=== PATIENT | female | born 1955 | race Caucasian/White ===

== ENCOUNTER 2018-10-16 20:24 | Emergency (ER) | payer MEDICARE, MEDICAID ==
--- NOTE | 2018-10-16 20:55 | EDM.PDOC ---
ED HPI GENERAL MEDICAL PROBLEM - General Chief Complaint: Abdominal Pain Stated Complaint: MEDICAL [facility]IA [facility] Time Seen by Provider: 10/16/18 20:35 Source of Information: Reports: Patient, Provider History Limitations: Reports: No Limitations - History of Present Illness INITIAL COMMENTS - FREE TEXT/NARRATIVE: 62-year-old female in a local treatment center for chemical dependency treatment , has been in for one month but today developed some left lower abdominal and left flank pain for the past 10 hours, particularly bad the last 5-6 hours. She has a history of radiation of the pelvis for cancer and a bladder rupture history and is concerned something is wrong with her urinary tract system. She was recently treated for bladder infection but that seems to have improved and resolved. She has no fevers or chills, no abdominal distention. Denies nausea or vomiting or bowel changes. She is very anxious. Onset: Sudden Duration: Hour(s): (7 hours) Location: Reports: Other (Left lower abdomen and left flank) Associated Symptoms: Reports: No Other Symptoms Left Lower Abdomen Pain Score (Numeric/FACES): 5 - Related Data Allergies Allergy/AdvReac Type Severity Reaction Status Date / Time ibuprofen Allergy Difficulty Verified 10/16/18 20:31 Breathing Sulfa (Sulfonamide Allergy Hives Verified 10/16/18 20:31 Antibiotics) Home Meds: Home Meds Acetaminophen [Tylenol] 325 mg PO Q4H PRN 10/16/18 [History] Albuterol/Ipratropium [Combivent Respimat] 4 gm IH DAILY 10/16/18 [History] Carvedilol 6.25 mg PO DAILY 10/16/18 [History] Clopidogrel Bisulfate [Clopidogrel] 75 mg PO DAILY 10/16/18 [History] DULoxetine [Cymbalta] 60 mg PO DAILY 10/16/18 [History] Losartan [Cozaar] 50 mg PO DAILY 10/16/18 [History] amLODIPine [Norvasc] 10 mg PO DAILY 10/16/18 [History] atorvaSTATin [Lipitor] 40 mg PO DAILY 10/16/18 [History] Past Medical History HEENT History: Reports: Impaired Vision Cardiovascular History: Reports: High Cholesterol, Hypertension, [place] Respiratory History: Reports: COPD, Pneumonia, Recurrent Genitourinary History: Reports: Urinary Incontinence 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 Neurological History: Reports: Brain Injury Other Neuro History: brain bleed Psychiatric History: Reports: Addiction, Anxiety Oncologic (Cancer) History: Reports: Cervix - Past Surgical History Cardiovascular Surgical History: Reports: Coronary Artery Stent GI Surgical History: Reports: Colostomy Social & Family History - Tobacco Use Smoking Status *Q: Current Every Day Smoker Years of Tobacco use: 45 Packs/Tins Daily: 1 - Caffeine Use Caffeine Use: Reports: Coffee, Soda Caffeine Use Comment: rarely - Alcohol Use Days Per Week of Alcohol Use: 7 Number of Drinks Per Day: 3 Total Drinks Per Week: 21 Date of Last Drink: 09/08/18 - Recreational Drug Use Recreational Drug Use: Yes Recreational Drug Type: Reports: Methamphetamine Recreational Drug Use Frequency: Not Used In Over 1 Month ED ROS GENERAL - Review of Systems Review Of Systems: See Below Constitutional: Denies: Fever, Chills HEENT: Reports: No Symptoms Respiratory: Denies: Shortness of Breath, Pleuritic Chest Pain Cardiovascular: Denies: Chest Pain GI/Abdominal: Reports: Abdominal Pain. Denies: Diarrhea, Nausea, Vomiting : Reports: Flank Pain. Denies: Frequency, Hematuria, Urgency Skin: Reports: No Symptoms Neurological: Reports: No Symptoms Psychiatric: Reports: Anxiety ED EXAM, GI/ABD - Physical Exam Exam: See Below Exam Limited By: No Limitations General Appearance: Alert, No Apparent Distress, Other (Looks uncomfortable but not distressed) Eyes: Bilateral: Normal Appearance (No jaundice) Respiratory/Chest: No Respiratory Distress, Lungs Clear Cardiovascular: Regular Rate, Rhythm GI/Abdominal Exam: Other (Abdomen is very flat, normal bowel sounds. She has tenderness to palpation with mild guarding in the left lower quadrant but no rebound tenderness. She is also tender to the left flank area, there is no superficial rash or bruising) Course - Vital Signs Last Recorded V/S: Last Vital Signs Temp 99.4 F 10/16/18 20:26 Pulse 94 10/16/18 20:26 Resp 16 10/16/18 20:26 BP 136/51 L 10/16/18 20:26 Pulse Ox 99 10/16/18 20:26 - Orders/Labs/Meds Meds: Medications Discontinued Medications Generic Name Dose Route Start Last Admin Trade Name Freq PRN Reason Stop Dose Admin Ketorolac Tromethamine 10 mg 10/16/18 21:38 10/16/18 21:44 Toradol PO 10/16/18 21:39 10 mg ONETIME ONE Administration - Re-Assessments/Exams Free Text/Narrative Re-Assessment/Exam: 10/16/18 20:54 CT the abdomen and pelvis to rule out a renal stone, bladder injury or other pathology was ordered. 10/16/18 21:38 CT scan shows chronic changes from radiation of the pelvis, and left hydronephrosis considered compensatory to her atrophic right kidney. It is possible she is experiencing some renal colic from the right side. She said she says numerous CT scans in the recent years from spasm-like pain in her abdomen, nothing has been found so this may be similar. She'll be given one 10 mg dose of Toradol orally, and can recheck in the next 24-48 hours if not improving. Departure - Departure Time of Disposition: 22:13 Disposition: DC/Tfer to Other 70 Clinical Impression: Left flank pain, Renal colic on left side - Discharge Information Instructions: Flank Pain, Adult Referrals: PCP,None [Primary Care Provider] - Forms: ED Department Discharge Care Plan Goals: Continue current medications, and consider rechecking in 24-48 hours if left flank pain is persistent, you develop fevers or chills or worsening pain.
--- NOTE | 2018-10-16 21:29 | CRLCT ---
INDICATION: Left flank pain. History of cervical cancer and bladder repair. TECHNIQUE: CT abdomen and pelvis without contrast. COMPARISON: None. FINDINGS: Lower chest: Coronary atherosclerosis. Liver: Normal in size and attenuation. No masses. Gallbladder and bile ducts: No stones or inflammation. No biliary dilatation. Pancreas: Unremarkable. No mass or inflammation. Spleen: Normal in size. No masses. Adrenal glands: Normal in size. No nodules. Kidneys: Atrophic right kidney without evidence of hydronephrosis. Mild compensatory hypertrophy left kidney with mild left hydronephrosis. Some tortuosity of the proximal left ureter with some decreased caliber of the mid ureter. Distal ureter appears decompressed. No definite nephrolithiasis seen. GI tract: The stomach is unremarkable. There are no dilated loops of large or small intestine. Vasculature: Atherosclerosis without abdominal aortic aneurysm. Pelvis: The bladder is decompressed and the patient is status posthysterectomy. There is some diffuse fascial thickening along the pelvic sidewalls as well as at the level of the sciatic notch and the presacral space. Some chunky and linear calcifications present along the pelvic sidewalls as well as along the base of the bladder. This appears to be mostly external although some component could be within the urethra. There are diffuse irregular areas of soft tissue density along the pelvic sidewalls although no obvious pelvic sidewall masses are identified for the noncontrast technique. Bones: Mild inhomogeneity and sclerosis within the pelvis suggesting prior radiation therapy. Avascular necrosis left femoral head. Old inferior endplate fracture L5. IMPRESSION: 1. Atrophic right kidney with compensatory hypertrophy of the left kidney. Mild left hydronephrosis without nephrolithiasis. This transitions over the mid to distal left ureter, likely related to fibrosis along the pelvic sidewall. 2. Decompressed bladder with diffuse fascial thickening within the pelvis, sclerosis within the osseous structures as well as areas of calcification near the base of the bladder and along the pelvic sidewalls. This likely represents postsurgical and/or postradiation changes with dystrophic calcification. 3. Avascular necrosis left femoral head. Old-appearing L5 inferior endplate fracture. Please note that all CT scans at this facility use dose modulation, iterative reconstruction, and/or weight-based dosing when appropriate to reduce radiation dose to as low as reasonably achievable. Dictated by Edson Han MD @ Oct 16 2018 9:08PM Signed by Dr. Edson Han @ Oct 16 2018 9:27PM
[2018-10-16] MEDS ORDERED: Ketorolac 10 MG Tab PO ONE (21:38)
== END 2018-10-16 22:39 | disposition other institution (70) ==
LOC: JP.ED 20:24
DX: N13.30 Unspecified hydronephrosis (principal); E78.00 Pure hypercholesterolemia, unspecified; I10 Essential (primary) hypertension; I25.2 Old myocardial infarction; J44.9 Chronic obstructive pulmonary disease, unspecified; F17.210 Nicotine dependence, cigarettes, uncomplicated; Z88.8 Allergy status to other drugs, medicaments and biological substances; Z88.2 Allergy status to sulfonamides; Z79.899 Other long term (current) drug therapy; Z88.6 Allergy status to analgesic agent
CPT/HCPCS: 74176; 99284; A9270; 99283

== ENCOUNTER 2018-10-17 12:52 | Emergency (ER) | payer MEDICARE, MEDICAID ==
[2018-10-17] MEDS ORDERED: LORazepam 1 MG Tab PO ONE (14:13)
--- NOTE | 2018-10-17 14:16 | EDM.PDOC ---
ED HPI GENERAL MEDICAL PROBLEM - General Chief Complaint: Flank Pain Stated Complaint: MEDICAL [facility]IA [facility] Time Seen by Provider: 10/17/18 14:08 Source of Information: Reports: Patient, Old Records, RN Notes Reviewed History Limitations: Reports: No Limitations - History of Present Illness INITIAL COMMENTS - FREE TEXT/NARRATIVE: 62-year-old female presents to emergency department today complaint of right flank pain, she was evaluated in the emergency department yesterday for same complaints CT scan at that time showed no acute process she does have atrophy of the right kidney and hydronephrosis on the left side thought to be compensatory. She states Toradol may have helped a little feels like the pain is predominantly in the low back denies any fevers shortness of breath or chest Left Flank Pain Score (Numeric/FACES): 6 - Related Data Allergies Allergy/AdvReac Type Severity Reaction Status Date / Time ibuprofen Allergy Difficulty Verified 10/17/18 12:58 Breathing Sulfa (Sulfonamide Allergy Hives Verified 10/17/18 12:58 Antibiotics) Home Meds: Home Meds Acetaminophen [Tylenol] 325 mg PO Q4H PRN 10/16/18 [History] Albuterol/Ipratropium [Combivent Respimat] 4 gm IH DAILY 10/16/18 [History] Carvedilol 6.25 mg PO DAILY 10/16/18 [History] Clopidogrel Bisulfate [Clopidogrel] 75 mg PO DAILY 10/16/18 [History] DULoxetine [Cymbalta] 60 mg PO DAILY 10/16/18 [History] Losartan [Cozaar] 50 mg PO DAILY 10/16/18 [History] amLODIPine [Norvasc] 10 mg PO DAILY 10/16/18 [History] atorvaSTATin [Lipitor] 40 mg PO DAILY 10/16/18 [History] Hydrocodone/Acetaminophen [Hydrocodon-Acetaminophen 5-325] 1 each PO TID PRN #6 tablet 10/17/18 [Rx] Nitrofurantoin Monohyd/M-Cryst [Macrobid 100 mg Capsule] 100 mg PO BID #14 capsule 10/17/18 [Rx] Past Medical History HEENT History: Reports: Impaired Vision Cardiovascular History: Reports: CAD, High Cholesterol, Hypertension, [place] Respiratory History: Reports: COPD, Pneumonia, Recurrent Genitourinary History: Reports: Urinary Incontinence 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 Neurological History: Reports: Brain Injury Other Neuro History: brain bleed Psychiatric History: Reports: Addiction, Anxiety Oncologic (Cancer) History: Reports: Cervix - Past Surgical History Cardiovascular Surgical History: Reports: Coronary Artery Stent GI Surgical History: Reports: Colostomy Social & Family History - Tobacco Use Smoking Status *Q: Current Every Day Smoker Years of Tobacco use: 50 Packs/Tins Daily: 1 - Caffeine Use Caffeine Use: Reports: Coffee Caffeine Use Comment: rarely - Recreational Drug Use Recreational Drug Use: Yes Recreational Drug Type: Reports: Methamphetamine ED ROS GENERAL - Review of Systems Review Of Systems: See Below Constitutional: Reports: No Symptoms HEENT: Reports: No Symptoms Respiratory: Reports: No Symptoms Cardiovascular: Reports: No Symptoms GI/Abdominal: Reports: Abdominal Pain. Denies: Nausea, Vomiting : Reports: Flank Pain ED EXAM, GI/ABD - Physical Exam Exam: See Below Exam Limited By: No Limitations General Appearance: Alert, Mild Distress Respiratory/Chest: No Respiratory Distress, Lungs Clear, Normal Breath Sounds, No Accessory Muscle Use, Chest Non-Tender Cardiovascular: Regular Rate, Rhythm, No Murmur GI/Abdominal Exam: Soft, Non-Tender Back Exam: Normal Inspection, Full Range of Motion, Muscle Spasm, Paraspinal Tenderness. No: CVA Tenderness (R), CVA Tenderness (L), Decreased Range of Motion, Vertebral Tenderness Course - Vital Signs Last Recorded V/S: Last Vital Signs Temp 97.9 F 10/17/18 13:05 Pulse 73 10/17/18 13:05 Resp 16 10/17/18 13:05 BP 125/36 L 10/17/18 13:05 Pulse Ox 99 10/17/18 13:05 - Orders/Labs/Meds Orders: Active Orders 24 hr Category Date Time Status CULTURE URINE [RM] Urgent Lab 10/17/18 15:06 Received Labs: Laboratory Tests 10/17/18 10/17/18 10/17/18 Range/Units 14:05 14:13 14:13 WBC 17.6 H (4.5-11.0) K/uL RBC 3.61 (3.30-5.50) M/uL Hgb 11.4 L (12.0-15.0) g/dL Hct 35.0 L (36.0-48.0) % MCV 97 (80-98) fL MCH 32 H (27-31) pg MCHC 33 (32-36) % Plt Count 327 (150-400) K/uL Neut % (Auto) 85 H (36-66) % Lymph % (Auto) 8 L (24-44) % [place] % (Auto) 8 H (2-6) % Eos % (Auto) 0 L (2-4) % Baso % (Auto) 0 (0-1) % Sodium 134 L (140-148) mmol/L Potassium 4.3 (3.6-5.2) mmol/L Chloride 100 (100-108) mmol/L Carbon Dioxide 22 (21-32) mmol/L Anion Gap 16.3 H (5.0-14.0) mmol/L BUN 50 H (7-18) mg/dL Creatinine 1.6 H (0.6-1.0) mg/dL Est Cr Clr Drug Dosing 25.58 mL/min Estimated GFR (MDRD) 33 L (>60) Glucose 111 H (74-106) mg/dL Lactic Acid (0.4-2.0) mmol/L Calcium 8.5 (8.5-10.1) mg/dL Total Bilirubin 0.2 (0.2-1.0) mg/dL AST 26 (15-37) U/L ALT 24 (12-78) U/L Alkaline Phosphatase 151 H (46-116) U/L Troponin I (0.000-0.056) ng/mL Total Protein 7.0 (6.4-8.2) g/dL Albumin 2.8 L (3.4-5.0) g/dL Globulin 4.2 H (2.3-3.5) g/dL Albumin/Globulin Ratio 0.7 L (1.2-2.2) Urine Color Yellow Urine Appearance Slightly cloudy Urine pH 6.0 (4.5-8.0) Ur Specific [place] 1.015 (1.008-1.030) Urine Protein 100 H (NEGATIVE) mg/dL Urine Glucose (UA) Normal (NEGATIVE) mg/dL Urine Ketones Negative (NEGATIVE) mg/dL Urine Occult Blood Large (NEGATIVE) Urine Nitrite Negative (NEGATIVE) Urine Bilirubin Negative (NEGATIVE) Urine Urobilinogen Normal (NORMAL) mg/dL Ur Leukocyte Esterase Large (NEGATIVE) Urine RBC 10-20 H (0-5) Urine WBC Semi-packed H (0-5) Ur Epithelial Cells Moderate Amorphous Sediment Not seen Urine Bacteria Many Urine Mucus Not seen Urine Other 10/17/18 10/17/18 Range/Units 14:13 14:15 WBC (4.5-11.0) K/uL RBC (3.30-5.50) M/uL Hgb (12.0-15.0) g/dL Hct (36.0-48.0) % MCV (80-98) fL MCH (27-31) pg MCHC (32-36) % Plt Count (150-400) K/uL Neut % (Auto) (36-66) % Lymph % (Auto) (24-44) % [place] % (Auto) (2-6) % Eos % (Auto) (2-4) % Baso % (Auto) (0-1) % Sodium (140-148) mmol/L Potassium (3.6-5.2) mmol/L Chloride (100-108) mmol/L Carbon Dioxide (21-32) mmol/L Anion Gap (5.0-14.0) mmol/L BUN (7-18) mg/dL Creatinine (0.6-1.0) mg/dL Est Cr Clr Drug Dosing mL/min Estimated GFR (MDRD) (>60) Glucose (74-106) mg/dL Lactic Acid 1.4 (0.4-2.0) mmol/L Calcium (8.5-10.1) mg/dL Total Bilirubin (0.2-1.0) mg/dL AST (15-37) U/L ALT (12-78) U/L Alkaline Phosphatase (46-116) U/L Troponin I < 0.017 (0.000-0.056) ng/mL Total Protein (6.4-8.2) g/dL Albumin (3.4-5.0) g/dL Globulin (2.3-3.5) g/dL Albumin/Globulin Ratio (1.2-2.2) Urine Color Urine Appearance Urine pH (4.5-8.0) Ur Specific [place] (1.008-1.030) Urine Protein (NEGATIVE) mg/dL Urine Glucose (UA) (NEGATIVE) mg/dL Urine Ketones (NEGATIVE) mg/dL Urine Occult Blood (NEGATIVE) Urine Nitrite (NEGATIVE) Urine Bilirubin (NEGATIVE) Urine Urobilinogen (NORMAL) mg/dL Ur Leukocyte Esterase (NEGATIVE) Urine RBC (0-5) Urine WBC (0-5) Ur Epithelial Cells Amorphous Sediment Urine Bacteria Urine Mucus Urine Other Meds: Medications Discontinued Medications Generic Name Dose Route Start Last Admin Trade Name Freq PRN Reason Stop Dose Admin Ceftriaxone Sodium 1 gm/ 0 gm 10/17/18 15:06 10/17/18 15:23 Lidocaine HCl 2.1 ml IM 10/17/18 15:07 1 inj ONETIME ONE Administration Hydromorphone HCl 1 mg 10/17/18 15:01 10/17/18 15:16 Dilaudid IM 10/17/18 15:02 1 mg ONETIME ONE Administration Lorazepam 1 mg 10/17/18 14:13 10/17/18 14:46 Ativan PO 10/17/18 14:14 1 mg ONETIME ONE Administration Departure - Departure Time of Disposition: 15:40 Disposition: DC/Tfer to Inpt Rehab Fac 62 Condition: Fair Clinical Impression: UTI, Urinary tract infectious disease - Discharge Information Prescriptions: Hydrocodone/Acetaminophen [Hydrocodon-Acetaminophen 5-325] 1 each PO TID PRN #6 tablet PRN Reason: Pain Nitrofurantoin Monohyd/M-Cryst [Macrobid 100 mg Capsule] 100 mg PO BID #14 capsule Instructions: Urinary Tract Infection, Adult Referrals: PCP,None [Primary Care Provider] - Forms: ED Department Discharge Additional Instructions: Take full course of antibiotics, use ibuprofen for baseline pain control use hydrocodone for breakthrough pain, Please followup with your primary care provider in 3-5 days if not better, please call return to the emergency department with worsening of symptoms. - My Orders Last 24 Hours: My Active Orders 10/17/18 15:06 CULTURE URINE [RM] Urgent - Assessment/Plan Last 24 Hours: My Active Orders 10/17/18 15:06 CULTURE URINE [RM] Urgent Plan: Assessment Acuity = acute Site and laterality = urinary tract infection Etiology = probable bacterial cause Manifestations = renal colic and bladder spasms Location of injury = Home Lab values = urinalysis reveals packed WBCs consistent pyuria, 10-20 RBCs consistent with hematuria, WBC elevated at 17.6 consistent leukocytosis, hemoglobin low 11.4 consistent normochromic anemia creatinine elevated 1.6 consistent chronic renal failure stage G IIIB troponin was negative albumin low at 2.8 consistent hypoalbuminemia Plan She had good relief of her spasms with hydromorphone, provided 1 g Rocephin in the ED prescription written for Macrobid 100 mg by mouth twice a day 7 days given her sulfa allergy also hydrocodone 5/325 one tab by mouth 3 times a day when necessary total #6 be transported back to the chemical dependency facility This note was dictated using [employer] voice recognition software please call with any questions on syntax or grammar. He
[2018-10-17] MEDS ORDERED: HYDROmorphone 1 MG/ML Syringe IM ONE (15:01)
[2018-10-17] MEDS ORDERED: cefTRIAXone 1 GM, Lidocaine 1% 2.1 ML IM ONE ×2 (15:06)
[2018-10-17] MEDS ORDERED: diphenhydrAMINE 50 MG/ML SDV IM ONE (15:49)
== END 2018-10-17 16:43 ==
LOC: JP.ED 12:52
DX: N39.0 Urinary tract infection, site not specified (principal); N23 Unspecified renal colic; N32.89 Other specified disorders of bladder; I25.10 Atherosclerotic heart disease of native coronary artery without angina pectoris; E78.00 Pure hypercholesterolemia, unspecified; I10 Essential (primary) hypertension; I25.2 Old myocardial infarction; J44.9 Chronic obstructive pulmonary disease, unspecified; F41.9 Anxiety disorder, unspecified; F17.210 Nicotine dependence, cigarettes, uncomplicated; Z88.2 Allergy status to sulfonamides; Z88.6 Allergy status to analgesic agent; Z79.899 Other long term (current) drug therapy
CPT/HCPCS: 36415; 80053; 81001; 83605; 84484; 85025; 87086; 96372; 99285; A9270; J0696; J1170; J1200; J2001; 99283

== ENCOUNTER 2018-10-17 21:44 | Inpatient (IN) | payer MEDICARE, MEDICAID ==
[2018-10-17] MEDS ORDERED: cefTRIAXone 2 GM in Sodium Chloride 0.9% 50 ML IV ONE (22:15)
[2018-10-17] MEDS ORDERED: Sodium Chloride 0.9% 1,000 ML IV SCH (22:15)
--- NOTE | 2018-10-17 22:38 | EDM.PDOC ---
ED HPI GENERAL MEDICAL PROBLEM - General Chief Complaint: Fever Stated Complaint: [facility] Time Seen by Provider: 10/17/18 22:00 Source of Information: Reports: Patient, EMS, Provider History Limitations: Reports: No Limitations - History of Present Illness INITIAL COMMENTS - FREE TEXT/NARRATIVE: 62-year-old female with chronic UTIs, was just recently treated for UTI and evaluated in the emergency room last p.m. for left-sided abdominal discomfort had a negative CT scan and normal vitals. She was reevaluated today and found to have bacteriuria, a culture started and labs drawn. She was sent back to her course of detox at [facility] with an oral antibiotic but is worsening. She is becoming confused, febrile and there is concern for sepsis. 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: Reports: IV/IO, See EMS Report Bilateral Leg Pain Score (Numeric/FACES): 5 - Related Data Allergies Allergy/AdvReac Type Severity Reaction Status Date / Time ibuprofen Allergy Difficulty Verified 10/17/18 12:58 Breathing Sulfa (Sulfonamide Allergy Hives Verified 10/17/18 12:58 Antibiotics) Home Meds: Home Meds Acetaminophen [Tylenol] 325 mg PO Q4H PRN 10/16/18 [History] Albuterol/Ipratropium [Combivent Respimat] 4 gm IH DAILY 10/16/18 [History] Carvedilol 6.25 mg PO DAILY 10/16/18 [History] Clopidogrel Bisulfate [Clopidogrel] 75 mg PO DAILY 10/16/18 [History] DULoxetine [Cymbalta] 60 mg PO DAILY 10/16/18 [History] Losartan [Cozaar] 50 mg PO DAILY 10/16/18 [History] amLODIPine [Norvasc] 10 mg PO DAILY 10/16/18 [History] atorvaSTATin [Lipitor] 40 mg PO DAILY 10/16/18 [History] Hydrocodone/Acetaminophen [Hydrocodon-Acetaminophen 5-325] 1 each PO TID PRN #6 tablet 10/17/18 [Rx] Nitrofurantoin Monohyd/M-Cryst [Macrobid 100 mg Capsule] 100 mg PO BID #14 capsule 10/17/18 [Rx] Past Medical History HEENT History: Reports: Impaired Vision Cardiovascular History: Reports: CAD, High Cholesterol, Hypertension, PR Respiratory History: Reports: COPD, Pneumonia, Recurrent Genitourinary History: Reports: Urinary Incontinence 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: Other MONOGRAM AND LETTER PASTER History: hysterectomy Neurological History: Reports: Brain Injury Other Neuro History: brain bleed Psychiatric History: Reports: Addiction, Anxiety Oncologic (Cancer) History: Reports: Cervix - Past Surgical History Cardiovascular Surgical History: Reports: Coronary Artery Stent GI Surgical History: Reports: Colostomy Social & Family History - Family History Family Medical History: Noncontributory - Tobacco Use Smoking Status *Q: Current Every Day Smoker Years of Tobacco use: 40 Packs/Tins Daily: 1 Used Tobacco, but Quit: No Second Hand Smoke Exposure: No - Caffeine Use Caffeine Use: Reports: Coffee, Soda, Tea Caffeine Use Comment: rarely drink coffee, soda or tea - Alcohol Use Days Per Week of Alcohol Use: 7 Number of Drinks Per Day: 3 Total Drinks Per Week: 21 - Recreational Drug Use Recreational Drug Use: Yes Drug Use in Last 12 Months: Yes Recreational Drug Type: Reports: Methamphetamine Recreational Drug Use Frequency: Not Used In Over 1 Month ED ROS GENERAL - Review of Systems Review Of Systems: Unable To Obtain (Patient is very confused, very systems review from the nurses at [facility]) Respiratory: Denies: Shortness of Breath Cardiovascular: Denies: Chest Pain : Reports: Incontinence (Chronic) Skin: Reports: Pallor Neurological: Denies: Headache Psychiatric: Reports: Confusion ED EXAM, SEPSIS - Physical Exam Exam: See Below Exam Limited By: Altered Mental Status (Confused, tired) General Appearance: Alert Head: Atraumatic Respiratory/Chest: No Respiratory Distress, Lungs Clear Cardiovascular: Regular Rate, Rhythm, Tachycardia GI/Abdominal Exam: Tender (Still reactive with tenderness to palpation across the lower abdomen, moderate guarding) Extremities: No Pedal Edema Neurological: Confused, Slow to Respond Psychiatric: Flat Affect Skin: Warm, Dry Course - Vital Signs Last Recorded V/S: Last Vital Signs Temp 101.7 F H 10/18/18 01:54 Pulse 122 H 10/18/18 01:54 Resp 18 10/18/18 01:54 BP 156/51 H 10/18/18 01:54 Pulse Ox 96 10/18/18 01:54 - Orders/Labs/Meds Orders: Active Orders 24 hr Category Date Time Status CULTURE BLOOD [BC] Urgent Lab 10/17/18 22:25 Received CULTURE BLOOD [BC] Urgent Lab 10/17/18 22:30 Received Sodium Chloride 0.9% [Normal Saline] 1,000 ml Med 10/17/18 22:15 Active IV ASDIRECTED Blood Culture x2 Reflex Set [OM.PC] Urgent Oth 10/17/18 22:12 Ordered Medication Orders Acetaminophen (Tylenol) 650 mg PO Q4H PRN PRN Reason: Pain (Mild 1-3)/fever Last Admin: 10/18/18 00:36 Dose: 650 mg Albuterol (Proventil Neb Soln) 2.5 mg NEB Q4H PRN PRN Reason: Shortness Of Breath/wheezing Albuterol/Ipratropium (Duoneb 3.0-0.5 Mg/3 Ml) 3 ml NEB QIDRT [facility] Amlodipine Besylate (Norvasc) 10 mg PO DAILY [facility] Carvedilol (Coreg) 6.25 mg PO DAILY [facility] Docusate Sodium (Colace) 100 mg PO BID PRN PRN Reason: Constipation Duloxetine HCl (Cymbalta) 60 mg PO DAILY [facility] Enoxaparin Sodium (Lovenox) 30 mg SUBCUT DAILY [facility] Sodium Chloride (Normal Saline) 1,000 mls @ 1,000 mls/hr IV ASDIRECTED [facility] Last Admin: 10/17/18 22:31 Dose: 1,000 mls/hr Ceftriaxone Sodium 1 gm/ (Sodium Chloride) 50 mls @ 100 mls/hr IV Q24H [facility] Sodium Chloride (Normal Saline) 1,000 mls @ 125 mls/hr IV ASDIRECTED [facility] Last Admin: 10/18/18 00:43 Dose: 125 mls/hr Lorazepam (Ativan) 1 mg IV Q4H PRN PRN Reason: Agitation Losartan Potassium (Cozaar) 50 mg PO DAILY [facility] Morphine Sulfate (Morphine) 2 mg IVPUSH Q2H PRN PRN Reason: Pain (severe 7-10) Nicotine (Habitrol) 21 mg TRDERM DAILY [facility] Ondansetron HCl (Zofran) 4 mg IV Q4H PRN PRN Reason: Nausea/Vomiting Oxycodone HCl (Oxycodone) 5 mg PO Q4H PRN PRN Reason: Pain (moderate 4-6) Temazepam (Restoril) 15 mg PO BEDTIME PRN PRN Reason: Sleep Labs: Laboratory Tests 10/17/18 10/17/18 10/17/18 Range/Units 22:25 22:25 22:25 WBC 19.3 H (4.5-11.0) K/uL RBC 3.74 (3.30-5.50) M/uL Hgb 11.6 L (12.0-15.0) g/dL Hct 35.8 L (36.0-48.0) % MCV 96 (80-98) fL MCH 31 (27-31) pg MCHC 32 (32-36) % Plt Count 317 (150-400) K/uL Neut % (Auto) 83 H (36-66) % Lymph % (Auto) 6 L (24-44) % Pitt % (Auto) 10 H (2-6) % Eos % (Auto) 0 L (2-4) % Baso % (Auto) 0 (0-1) % Sodium 134 L (140-148) mmol/L Potassium 4.3 (3.6-5.2) mmol/L Chloride 100 (100-108) mmol/L Carbon Dioxide 19 L (21-32) mmol/L Anion Gap 19.3 H (5.0-14.0) mmol/L BUN 50 H (7-18) mg/dL Creatinine 1.8 H (0.6-1.0) mg/dL Est Cr Clr Drug Dosing 21.35 mL/min Estimated GFR (MDRD) 29 L (>60) Glucose 123 H (74-106) mg/dL Lactic Acid 1.0 (0.4-2.0) mmol/L Calcium 9.0 (8.5-10.1) mg/dL Total Bilirubin 0.2 (0.2-1.0) mg/dL AST 46 H D (15-37) U/L ALT 28 (12-78) U/L Alkaline Phosphatase 129 H (46-116) U/L Ammonia (11-32) mmol/L Total Protein 7.2 (6.4-8.2) g/dL Albumin 2.7 L (3.4-5.0) g/dL Globulin 4.5 H (2.3-3.5) g/dL Albumin/Globulin Ratio 0.6 L (1.2-2.2) Amylase (25-115) U/L Lipase (73-393) U/L 10/17/18 10/17/18 Range/Units 23:05 23:09 WBC (4.5-11.0) K/uL RBC (3.30-5.50) M/uL Hgb (12.0-15.0) g/dL Hct (36.0-48.0) % MCV (80-98) fL MCH (27-31) pg MCHC (32-36) % Plt Count (150-400) K/uL Neut % (Auto) (36-66) % Lymph % (Auto) (24-44) % Pitt % (Auto) (2-6) % Eos % (Auto) (2-4) % Baso % (Auto) (0-1) % Sodium (140-148) mmol/L Potassium (3.6-5.2) mmol/L Chloride (100-108) mmol/L Carbon Dioxide (21-32) mmol/L Anion Gap (5.0-14.0) mmol/L BUN (7-18) mg/dL Creatinine (0.6-1.0) mg/dL Est Cr Clr Drug Dosing mL/min Estimated GFR (MDRD) (>60) Glucose (74-106) mg/dL Lactic Acid (0.4-2.0) mmol/L Calcium (8.5-10.1) mg/dL Total Bilirubin (0.2-1.0) mg/dL AST (15-37) U/L ALT (12-78) U/L Alkaline Phosphatase (46-116) U/L Ammonia 3 L (11-32) mmol/L Total Protein (6.4-8.2) g/dL Albumin (3.4-5.0) g/dL Globulin (2.3-3.5) g/dL Albumin/Globulin Ratio (1.2-2.2) Amylase 68 (25-115) U/L Lipase 154 (73-393) U/L Meds: Medications Generic Name Dose Route Start Last Admin Trade Name Freq PRN Reason Stop Dose Admin Acetaminophen 650 mg 10/17/18 23:57 10/18/18 00:36 Tylenol PO 650 mg Q4H PRN Administration Pain (Mild 1-3)/fever Albuterol 2.5 mg 10/17/18 23:57 Proventil Neb Soln NEB Q4H PRN Shortness Of Breath/wheezing Albuterol/Ipratropium 3 ml 10/18/18 07:00 Duoneb 3.0-0.5 Mg/3 Ml NEB QIDRT [facility] Amlodipine Besylate 10 mg 10/18/18 09:00 Norvasc PO DAILY [facility] Carvedilol 6.25 mg 10/18/18 09:00 Coreg PO DAILY [facility] Docusate Sodium 100 mg 10/17/18 23:57 Colace PO BID PRN Constipation Duloxetine HCl 60 mg 10/18/18 09:00 Cymbalta PO DAILY [facility] Enoxaparin Sodium 30 mg 10/18/18 09:00 Lovenox SUBCUT DAILY [facility] Sodium Chloride 1,000 mls @ 1,000 mls/hr 10/17/18 22:15 10/17/18 22:31 Normal Saline IV 1,000 mls/hr ASDIRECTED [facility] Administration Ceftriaxone Sodium 1 gm/ 50 mls @ 100 mls/hr 10/18/18 21:00 Sodium Chloride IV Q24H [facility] Sodium Chloride 1,000 mls @ 125 mls/hr 10/17/18 23:57 10/18/18 00:43 Normal Saline IV 125 mls/hr ASDIRECTED [facility] Administration Lorazepam 1 mg 10/17/18 23:57 Ativan IV Q4H PRN Agitation Losartan Potassium 50 mg 10/18/18 09:00 Cozaar PO DAILY [facility] Morphine Sulfate 2 mg 10/17/18 23:57 Morphine IVPUSH Q2H PRN Pain (severe 7-10) Nicotine 21 mg 10/18/18 09:00 Habitrol TRDERM DAILY [facility] Ondansetron HCl 4 mg 10/17/18 23:57 Zofran IV Q4H PRN Nausea/Vomiting Oxycodone HCl 5 mg 10/17/18 23:57 Oxycodone PO Q4H PRN Pain (moderate 4-6) Temazepam 15 mg 10/17/18 23:57 Restoril PO BEDTIME PRN Sleep Discontinued Medications Generic Name Dose Route Start Last Admin Trade Name Freq PRN Reason Stop Dose Admin Enoxaparin Sodium 30 mg 10/18/18 00:30 10/18/18 00:36 Lovenox SUBCUT 10/18/18 00:31 30 mg ONETIME ONE Administration Ceftriaxone Sodium 2 gm/ 50 mls @ 100 mls/hr 10/17/18 22:15 10/17/18 22:31 Sodium Chloride IV 10/17/18 22:44 100 mls/hr ONETIME ONE Administration Nicotine 21 mg 10/18/18 00:30 10/18/18 00:36 Habitrol SHARI 10/18/18 00:31 21 mg ONETIME ONE Administration - Re-Assessments/Exams Free Text/Narrative Re-Assessment/Exam: 10/17/18 23:53 IV was started and she was bolused with 1000 mL of normal saline, after blood cultures were drawn 2 g of Rocephin were given IV. CBC CMP and lactic acid were drawn, lactic acid 1.0, creatinine now 1.8 compared to 1.6 earlier today and GFR slightly decreased from 32 to 29. Hospitalist service was consulted for admission for IV antibiotics and fluid support. Departure - Departure Time of Disposition: 00:04 Disposition: Admitted As Inpatient 66 Clinical Impression: Sepsis due to urinary tract infection - Discharge Information - My Orders Last 24 Hours: My Active Orders 10/17/18 22:12 Blood Culture x2 Reflex Set [OM.PC] Urgent 10/17/18 22:15 Sodium Chloride 0.9% [Normal Saline] 1,000 ml IV ASDIRECTED 10/17/18 22:25 CULTURE BLOOD [BC] Urgent 10/17/18 22:30 CULTURE BLOOD [BC] Urgent - Assessment/Plan Last 24 Hours: My Active Orders 10/17/18 22:12 Blood Culture x2 Reflex Set [OM.PC] Urgent 10/17/18 22:15 Sodium Chloride 0.9% [Normal Saline] 1,000 ml IV ASDIRECTED 10/17/18 22:25 CULTURE BLOOD [BC] Urgent 10/17/18 22:30 CULTURE BLOOD [BC] Urgent
--- NOTE | 2018-10-17 23:42 | CRLCR ---
HISTORY: Cough COMPARISON: None available FINDINGS: A portable erect AP view of the chest was obtained at STUDY TIME hours. The lungs are clear. No focal or diffuse infiltrates are present. The heart is normal in size. The mediastinum is normal in appearance. The osseous structures are normal in appearance for the patient`s age. IMPRESSION: Normal portable chest single view. Dictated by Ramy Mederos MD @ Oct 17 2018 11:40PM Signed by Dr. Ramy Mederos @ Oct 17 2018 11:40PM
[2018-10-17] MEDS ORDERED: Temazepam 15 MG Cap PO PRN (23:57)
[2018-10-17] MEDS ORDERED: Docusate Sodium 100 MG Cap PO PRN (23:57)
[2018-10-17] MEDS ORDERED: Ondansetron 4 MG/2 ML SDV IV PRN (23:57)
[2018-10-17] MEDS ORDERED: Morphine 2 MG/ML Syringe IVPUSH PRN (23:57)
[2018-10-17] MEDS ORDERED: Albuterol 0.083% 2.5 MG/3 ML Neb Soln NEB PRN (23:57)
--- NOTE | 2018-10-18 00:15 | CRLCT ---
INDICATION: Confusion TECHNIQUE: CT head without contrast. COMPARISON: None. FINDINGS: CSF spaces: Within normal limits for age. Brain parenchyma: No intracranial bleed or mass effect. Old lacunar infarction at the margin of the left lentiform nucleus. Skull base and calvarium: Trace mucosal thickening paranasal sinuses. Atherosclerosis. The visualized orbits are grossly unremarkable. No skull fractures. IMPRESSION: 1. No intracranial bleed or mass effect. 2. Old left basal ganglia lacunar infarct. Please note that all CT scans at this facility use dose modulation, iterative reconstruction, and/or weight-based dosing when appropriate to reduce radiation dose to as low as reasonably achievable. Dictated by Edson Han MD @ Oct 18 2018 12:08AM Signed by Dr. Edson Han @ Oct 18 2018 12:13AM
[2018-10-18] MEDS ORDERED: Enoxaparin 30 MG/0.3 ML Syringe SUBCUT ONE (00:30)
[2018-10-18] MEDS ORDERED: Nicotine 21 MG/24 Hr Patch TRDERM ONE (00:30)
[2018-10-18] MEDS: Acetaminophen 325 MG Tab PO PRN ×4 (00:36→18:43)
[2018-10-18] MEDS: Sodium Chloride 0.9% 1,000 ML IV SCH ×3 (00:43→17:42)
[2018-10-18] MEDS: Albuterol/Ipratropium 3.0-0.5 MG/3 ML Neb Soln NEB SCH ×4 (06:59→20:35)
--- NOTE | 2018-10-18 07:20 | PCM.HP ---
H&P History of Present Illness - General Date of Service: 10/17/18 Admit Problem/Dx: Admission Diagnosis/Problem Admission Diagnosis/Problem Urinary tract infection Source of Information: Patient History Limitations: Reports: Other (sleepy, does answers question, mild agitation.) - History of Present Illness Initial Comments - Free Text/Narative: 62-year-old female with chronic UTIs, was just recently treated for UTI and evaluated in the emergency room last p.m. for left-sided abdominal discomfort had a negative CT scan and normal vitals. She was reevaluated today and found to have bacteriuria, a culture started and labs drawn. She was sent back to her course of detox at [facility] with an oral antibiotic but is worsening. She is becoming confused, febrile and there is concern for sepsis. Onset: Gradual Duration: Day(s): (Symptoms worsening over the past 3 days) Associated Symptoms: Reports: Confusion, Fever/Chills, Malaise, Weakness Emergency work-up: labs: WBC 19.3, CMP abnormal , Ammonia level normal, CRP elevated Imaging: chest xray negative , Head CT negative. Meds: Rocephin 2 gram IV once, IV fluids Plan: admit for further care. Onset of Symptoms: Reports: Gradual Duration of Symptoms: Reports: Day(s): (3) Location: Reports: Abdomen, Generalized Improves with: Reports: None, Medication (has been taking Macrobid 100mg po bid) Worsens with: Reports: None Context: Reports: Other (chronic bladder leakage, recurrent uti) Associated Symptoms: Reports: Confusion, Fever/Chills, Loss of Appetite, Weakness Bilateral Leg Pain Score (Numeric/FACES): 5 - Related Data Allergies/Adverse Reactions: Allergies Allergy/AdvReac Type Severity Reaction Status Date / Time ibuprofen Allergy Difficulty Verified 10/17/18 12:58 Breathing Sulfa (Sulfonamide Allergy Hives Verified 10/17/18 12:58 Antibiotics) Home Medications: Home Meds Acetaminophen [Tylenol] 325 mg PO Q4H PRN 10/16/18 [History] Albuterol/Ipratropium [Combivent Respimat] 4 gm IH DAILY 10/16/18 [History] Carvedilol 6.25 mg PO DAILY 10/16/18 [History] Clopidogrel Bisulfate [Clopidogrel] 75 mg PO DAILY 10/16/18 [History] DULoxetine [Cymbalta] 60 mg PO DAILY 10/16/18 [History] Losartan [Cozaar] 50 mg PO DAILY 10/16/18 [History] amLODIPine [Norvasc] 10 mg PO DAILY 10/16/18 [History] atorvaSTATin [Lipitor] 40 mg PO DAILY 10/16/18 [History] Hydrocodone/Acetaminophen [Hydrocodon-Acetaminophen 5-325] 1 each PO TID PRN #6 tablet 10/17/18 [Rx] Nitrofurantoin Monohyd/M-Cryst [Macrobid 100 mg Capsule] 100 mg PO BID #14 capsule 10/17/18 [Rx] Past Medical History HEENT History: Reports: Impaired Vision Cardiovascular History: Reports: CAD, High Cholesterol, Hypertension, OR Respiratory History: Reports: COPD, Pneumonia, Recurrent Genitourinary History: Reports: Urinary Incontinence 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: Other OB/BYN History: hysterectomy Neurological History: Reports: Brain Injury Other Neuro History: brain bleed Psychiatric History: Reports: Addiction, Anxiety Oncologic (Cancer) History: Reports: Cervix - Past Surgical History Cardiovascular Surgical History: Reports: Coronary Artery Stent GI Surgical History: Reports: Colostomy Social & Family History - Family History Family Medical History: Noncontributory - Tobacco Use Smoking Status *Q: Current Every Day Smoker Years of Tobacco use: 40 Packs/Tins Daily: 1 Used Tobacco, but Quit: No Second Hand Smoke Exposure: No - Caffeine Use Caffeine Use: Reports: Coffee, Soda, Tea Caffeine Use Comment: rarely drink coffee, soda or tea - Alcohol Use Days Per Week of Alcohol Use: 7 Number of Drinks Per Day: 3 Total Drinks Per Week: 21 - Recreational Drug Use Recreational Drug Use: Yes Drug Use in Last 12 Months: Yes Recreational Drug Type: Reports: Methamphetamine Recreational Drug Use Frequency: Not Used In Over 1 Month - Living Situation & Occupation Living situation: Reports: Single ([facility] staff report she lives with her "drug dealer" Boyfriend in [place], [place]. Her Son is a [employer] Coxsw[employer], concerns for her health. Patient reports lives with her Brother, has 7 children. ) H&P Review of Systems - Review of Systems: Review Of Systems: See Below General: Reports: Fever, Chills, Malaise, Weakness, Fatigue, Decreased Appetite HEENT: Reports: No Symptoms Pulmonary: Reports: Cough, Sputum Cardiovascular: Reports: No Symptoms Gastrointestinal: Reports: Abdominal Pain (chronic and acute), Other (reports last bowel movement 11 am on 10-17-2018) Genitourinary: Reports: Dysuria, Frequency, Burning, Pain, Urgency, Incontinence (chronic due to cancer, radation and pelvic surgery) Musculoskeletal: Reports: Muscle Pain (bones and muscles feel achy) Skin: Reports: No Symptoms Psychiatric: Reports: Confusion, Agitation (tired, does want to answer questions ) Neurological: Reports: Confusion, Weakness Hematologic/Lymphatic: Reports: No Symptoms Immunologic: Reports: No Symptoms Exam - Exam Exam: See Below - Vital Signs Vital Signs: Last Vital Signs Temp 36.6 C 10/18/18 06:00 Pulse 122 H 10/18/18 01:54 Resp 18 10/18/18 01:54 BP 156/51 H 10/18/18 01:54 Pulse Ox 96 10/18/18 01:54 Weight: 47.083 kg - Exam Quality Assessment: DVT Prophylaxis General: Sedated (sleepy, does answer question appropriately. very very deconditioned, thin, and older than stated age.) HEENT: PERRLA, Conjunctiva Clear, EACs Clear, EOMI, Hearing Intact, TMs Clear, Other (mouth dry) Neck: Supple, Trachea Midline Lungs: Decreased Breath Sounds (bilateral wheezing, clears with cough) Cardiovascular: Regular Rate, Regular Rhythm, Normal S1, Normal S2 GI/Abdominal Exam: Normal Bowel Sounds, Tender, Other (old mid line surgerical incision from umbilicus to mon pubis. generalized abdominal tenderness to light palpation.) (Female) Exam: Deferred (wearing a diaper, declines exam, "everything" is ok down there) Rectal (Female) Exam: Deferred Back Exam: Normal Inspection Extremities: Normal Inspection (thin legs), Other (feet without ulcers.) Skin: Warm, Dry, Intact Neurological: Reflexes Equal Bilateral, Strength Equal Bilateral Neuro Extensive - Mental Status: Other (sleepy, irratable. does know where she is, and answers questions) Psychiatric: Agitated - Patient Data Lab Results Last 24 hrs: Laboratory Results - last 24 hr 10/17/18 10/17/18 10/17/18 Range/Units 22:25 22:25 22:25 WBC 19.3 H (4.5-11.0) K/uL RBC 3.74 (3.30-5.50) M/uL Hgb 11.6 L (12.0-15.0) g/dL Hct 35.8 L (36.0-48.0) % MCV 96 (80-98) fL MCH 31 (27-31) pg MCHC 32 (32-36) % Plt Count 317 (150-400) K/uL Neut % (Auto) 83 H (36-66) % Lymph % (Auto) 6 L (24-44) % [place] % (Auto) 10 H (2-6) % Eos % (Auto) 0 L (2-4) % Baso % (Auto) 0 (0-1) % Sodium 134 L (140-148) mmol/L Potassium 4.3 (3.6-5.2) mmol/L Chloride 100 (100-108) mmol/L Carbon Dioxide 19 L (21-32) mmol/L Anion Gap 19.3 H (5.0-14.0) mmol/L BUN 50 H (7-18) mg/dL Creatinine 1.8 H (0.6-1.0) mg/dL Est Cr Clr Drug Dosing 21.35 mL/min Estimated GFR (MDRD) 29 L (>60) Glucose 123 H (74-106) mg/dL Lactic Acid 1.0 (0.4-2.0) mmol/L Calcium 9.0 (8.5-10.1) mg/dL Total Bilirubin 0.2 (0.2-1.0) mg/dL AST 46 H D (15-37) U/L ALT 28 (12-78) U/L Alkaline Phosphatase 129 H (46-116) U/L Ammonia (11-32) mmol/L C-Reactive Protein (0.0-0.3) mg/dL Total Protein 7.2 (6.4-8.2) g/dL Albumin 2.7 L (3.4-5.0) g/dL Globulin 4.5 H (2.3-3.5) g/dL Albumin/Globulin Ratio 0.6 L (1.2-2.2) Amylase (25-115) U/L Lipase (73-393) U/L 10/17/18 10/17/18 10/17/18 Range/Units 23:05 23:09 23:57 WBC (4.5-11.0) K/uL RBC (3.30-5.50) M/uL Hgb (12.0-15.0) g/dL Hct (36.0-48.0) % MCV (80-98) fL MCH (27-31) pg MCHC (32-36) % Plt Count (150-400) K/uL Neut % (Auto) (36-66) % Lymph % (Auto) (24-44) % [place] % (Auto) (2-6) % Eos % (Auto) (2-4) % Baso % (Auto) (0-1) % Sodium (140-148) mmol/L Potassium (3.6-5.2) mmol/L Chloride (100-108) mmol/L Carbon Dioxide (21-32) mmol/L Anion Gap (5.0-14.0) mmol/L BUN (7-18) mg/dL Creatinine (0.6-1.0) mg/dL Est Cr Clr Drug Dosing mL/min Estimated GFR (MDRD) (>60) Glucose (74-106) mg/dL Lactic Acid (0.4-2.0) mmol/L Calcium (8.5-10.1) mg/dL Total Bilirubin (0.2-1.0) mg/dL AST (15-37) U/L ALT (12-78) U/L Alkaline Phosphatase (46-116) U/L Ammonia 3 L (11-32) mmol/L C-Reactive Protein 7.19 H (0.0-0.3) mg/dL Total Protein (6.4-8.2) g/dL Albumin (3.4-5.0) g/dL Globulin (2.3-3.5) g/dL Albumin/Globulin Ratio (1.2-2.2) Amylase 68 (25-115) U/L Lipase 154 (73-393) U/L 10/18/18 10/18/18 Range/Units 05:11 05:11 WBC 16.6 H (4.5-11.0) K/uL RBC 3.60 (3.30-5.50) M/uL Hgb 11.1 L (12.0-15.0) g/dL Hct 34.7 L (36.0-48.0) % MCV 96 (80-98) fL MCH 31 (27-31) pg MCHC 32 (32-36) % Plt Count 281 (150-400) K/uL Neut % (Auto) 86 H (36-66) % Lymph % (Auto) 5 L (24-44) % [place] % (Auto) 8 H (2-6) % Eos % (Auto) 0 L (2-4) % Baso % (Auto) 0 (0-1) % Sodium 136 L (140-148) mmol/L Potassium 3.5 L (3.6-5.2) mmol/L Chloride 104 (100-108) mmol/L Carbon Dioxide 18 L (21-32) mmol/L Anion Gap 17.5 H (5.0-14.0) mmol/L BUN 45 H (7-18) mg/dL Creatinine 1.6 H (0.6-1.0) mg/dL Est Cr Clr Drug Dosing 27.10 mL/min Estimated GFR (MDRD) 33 L (>60) Glucose 116 H (74-106) mg/dL Lactic Acid (0.4-2.0) mmol/L Calcium 8.2 L (8.5-10.1) mg/dL Total Bilirubin (0.2-1.0) mg/dL AST (15-37) U/L ALT (12-78) U/L Alkaline Phosphatase (46-116) U/L Ammonia (11-32) mmol/L C-Reactive Protein (0.0-0.3) mg/dL Total Protein (6.4-8.2) g/dL Albumin (3.4-5.0) g/dL Globulin (2.3-3.5) g/dL Albumin/Globulin Ratio (1.2-2.2) Amylase (25-115) U/L Lipase (73-393) U/L Result Diagrams: 10/18/18 05:11 10/18/18 05:11 - Problem List (1) UTI, Urinary tract infectious disease SNOMED Code(s): 66152359 ICD Code: N39.0 - URINARY TRACT INFECTION, SITE NOT SPECIFIED Status: Acute Priority: High Current Visit: Yes (2) Hypertension SNOMED Code(s): 78807973 ICD Code: I10 - ESSENTIAL (PRIMARY) HYPERTENSION Status: Acute Priority: High Current Visit: Yes Qualifiers: Hypertension type: unspecified Qualified Code(s): I10 - Essential (primary ) hypertension (3) Addiction to drug SNOMED Code(s): 667593658 ICD Code: F19.20 - OTHER PSYCHOACTIVE SUBSTANCE DEPENDENCE, UNCOMPLICATED Status: Acute Priority: High Current Visit: Yes (4) Tobacco use disorder, severe, dependence SNOMED Code(s): 62040556 ICD Code: F17.200 - NICOTINE DEPENDENCE, UNSPECIFIED, UNCOMPLICATED Status : Acute Priority: High Current Visit: Yes Problem List Initiated/Reviewed/Updated: Yes Orders Last 24hrs: Active Orders 24 hr Category Date Time Status Intake and Output [RC] QSHIFT Care 10/17/18 23:57 Active Notify Provider Vital Signs [RC] ASDIRECTED Care 10/17/18 23:57 Active Oxygen Therapy [RC] PRN Care 10/17/18 23:57 Active Pulse Oximetry [RC] CONTINUOUS Care 10/17/18 23:57 Active RT Aerosol Therapy [RC] ASDIRECTED Care 10/17/18 23:57 Active Up With Assistance [RC] ASDIRECTED Care 10/17/18 23:57 Active VTE/DVT Education [RC] Per Unit Routine Care 10/17/18 23:57 Active Vital Signs [RC] Q4H Care 10/17/18 23:57 Active Regular Diet [DIET] Diet 10/17/18 Breakfast Active CULTURE BLOOD [BC] Urgent Lab 10/17/18 22:25 Received CULTURE BLOOD [BC] Urgent Lab 10/17/18 22:30 Received Acetaminophen [Tylenol] Med 10/17/18 23:57 Active 650 mg PO Q4H PRN Albuterol [Proventil Neb Soln] Med 10/17/18 23:57 Active 2.5 mg NEB Q4H PRN Albuterol/Ipratropium [DuoNeb 3.0-0.5 MG/3 ML] Med 10/18/18 07:00 Active 3 ml NEB QIDRT Carvedilol [Coreg] Med 10/18/18 09:00 Active 6.25 mg PO DAILY DULoxetine [Cymbalta] Med 10/18/18 09:00 Active 60 mg PO DAILY Docusate Sodium [Colace] Med 10/17/18 23:57 Active 100 mg PO BID PRN Enoxaparin [Lovenox] Med 10/18/18 09:00 Active 30 mg SUBCUT DAILY LORazepam [Ativan] Med 10/17/18 23:57 Active 1 mg IV Q4H PRN Losartan [Cozaar] Med 10/18/18 09:00 Active 50 mg PO DAILY Morphine Med 10/17/18 23:57 Active 2 mg IVPUSH Q2H PRN Nicotine [Habitrol] Med 10/18/18 09:00 Active 21 mg TRDERM DAILY Ondansetron [Zofran] Med 10/17/18 23:57 Active 4 mg IV Q4H PRN Sodium Chloride 0.9% [Normal Saline] 1,000 ml Med 10/17/18 22:15 Active IV ASDIRECTED Sodium Chloride 0.9% [Normal Saline] 1,000 ml Med 10/17/18 23:57 Active IV ASDIRECTED Temazepam [Restoril] Med 10/17/18 23:57 Active 15 mg PO BEDTIME PRN amLODIPine [Norvasc] Med 10/18/18 09:00 Active 10 mg PO DAILY cefTRIAXone [Rocephin] 1 gm Med 10/18/18 21:00 Active Sodium Chloride 0.9% [Normal Saline] 50 ml IV Q24H oxyCODONE Med 10/17/18 23:57 Active 5 mg PO Q4H PRN Blood Culture x2 Reflex Set [OM.PC] Urgent Oth 10/17/18 22:12 Ordered Resuscitation Status Routine Resus Stat 10/17/18 23:28 Ordered Medication Orders Acetaminophen (Tylenol) 650 mg PO Q4H PRN PRN Reason: Pain (Mild 1-3)/fever Last Admin: 10/18/18 00:36 Dose: 650 mg Albuterol (Proventil Neb Soln) 2.5 mg NEB Q4H PRN PRN Reason: Shortness Of Breath/wheezing Albuterol/Ipratropium (Duoneb 3.0-0.5 Mg/3 Ml) 3 ml NEB QIDRT YUNIOR Last Admin: 10/18/18 06:59 Dose: 3 ml Amlodipine Besylate (Norvasc) 10 mg PO DAILY [facility] Carvedilol (Coreg) 6.25 mg PO DAILY [facility] Docusate Sodium (Colace) 100 mg PO BID PRN PRN Reason: Constipation Duloxetine HCl (Cymbalta) 60 mg PO DAILY [facility] Enoxaparin Sodium (Lovenox) 30 mg SUBCUT DAILY [facility] Sodium Chloride (Normal Saline) 1,000 mls @ 1,000 mls/hr IV ASDIRECTED [facility] Last Admin: 10/17/18 22:31 Dose: 1,000 mls/hr Ceftriaxone Sodium 1 gm/ (Sodium Chloride) 50 mls @ 100 mls/hr IV Q24H [facility] Sodium Chloride (Normal Saline) 1,000 mls @ 125 mls/hr IV ASDIRECTED [facility] Last Admin: 10/18/18 00:43 Dose: 125 mls/hr Lorazepam (Ativan) 1 mg IV Q4H PRN PRN Reason: Agitation Losartan Potassium (Cozaar) 50 mg PO DAILY [facility] Morphine Sulfate (Morphine) 2 mg IVPUSH Q2H PRN PRN Reason: Pain (severe 7-10) Nicotine (Habitrol) 21 mg TRDERM DAILY [facility] Ondansetron HCl (Zofran) 4 mg IV Q4H PRN PRN Reason: Nausea/Vomiting Oxycodone HCl (Oxycodone) 5 mg PO Q4H PRN PRN Reason: Pain (moderate 4-6) Temazepam (Restoril) 15 mg PO BEDTIME PRN PRN Reason: Sleep Assessment/Plan Comment:: ASSESSMENT AND PLAN 62-year-old female with chronic UTIs, was just recently treated for UTI and evaluated in the emergency room last p.m. for left-sided abdominal discomfort had a negative CT scan and normal vitals. She was reevaluated today and found to have bacteriuria, a culture started and labs drawn. She was sent back to her course of detox at [facility] with an oral antibiotic but is worsening. She is becoming confused, febrile and there is concern for sepsis. Onset: Gradual Duration: Day(s): (Symptoms worsening over the past 3 days) Associated Symptoms: Reports: Confusion, Fever/Chills, Malaise, Weakness Emergency work-up: labs: WBC 19.3, CMP abnormal , Ammonia level normal, CRP elevated Imaging: chest x-ray negative , Head CT negative. Meds: Rocephin 2 gram IV once, IV fluids Plan: admit for further care. Urinary Tract Infection. - Ms. Gann has history of cervical cancer with mets to bladder and pelvis. She had radiation to the area. Now has chronic urinary leakage and recurrent urinary tract infections. -Rocephin 1 gram IV every 24 hours -IV fluids NS 125ml/hr -I&O -urine and blood cultures pending Hypertension and CAD -monitor vital signs every 4 hours -continue home medication Addiction to Drug - Ms. 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 She is from the [facility] area. -IV Ativan 1 mg every 4 hours as needed for agitation -sleep aid Tobacco use - staff at [facility] report she will most as much as possible, 2 packs per day. Discussed with Ms. Gann no smoking in hospital. -Nicotine patch 21 mg topical. MAINTENANCE ISSUES -DVT prophylaxis; Lovonex 30 mg subcut -GI prophylaxis; IV Protonix 20 mg daily -Kohli catheter; not indicated -Nutrition; regular diet -Nicotine dependence; nicotine patch CODE STATUS-FULL ADMISSION STATUS-patient will be admitted to inpatient status, expect at least a 2 night hospital stay for evaluation and management of problems as outlined above. At the time of this admission I do not reasonably expected evaluation and management of this problem will require more than a 96 hour hospital stay. DISPOSITION-[facility] hospital stay. Primary Care Provider: SERENA Ludwig. , no local provider noted Hospitalist: Dr. Thanh M.D.
[2018-10-18] MEDS: oxyCODONE 5 MG Tab PO PRN ×3 (07:34→17:40)
[2018-10-18] MEDS: DULoxetine 30 MG Cap PO SCH (08:32)
[2018-10-18] MEDS: Nicotine 21 MG/24 Hr Patch TRDERM SCH (08:32)
[2018-10-18] MEDS: Losartan 50 MG Tab PO SCH (08:33)
[2018-10-18] MEDS: amLODIPine 10 MG Tab PO SCH (08:34)
[2018-10-18] MEDS: Carvedilol 6.25 MG Tab PO SCH (08:34)
[2018-10-18] MEDS ORDERED: amLODIPine 5 MG Tab PO SCH (09:00)
[2018-10-18] MEDS ORDERED: Enoxaparin 30 MG/0.3 ML Syringe SUBCUT SCH (09:00)
[2018-10-18] MEDS ORDERED: Potassium Chloride 20 MEQ Tab.ER PO ONE (09:00)
--- NOTE | 2018-10-18 12:50 | PCM.PN ---
- General Info Date of Service: 10/18/18 Subjective Update: Ms. Gann is a 62-year-old woman who was admitted through the emergency department last night with complicated urinary tract infection, sepsis, and left pyelonephritis. She is modestly improved since admission although has had recurrent temperature elevations. Functional Status: Reports: Tolerating Diet, Ambulating, Urinating - Review of Systems General: Reports: Fever, Weakness, Chills Pulmonary: Reports: No Symptoms Cardiovascular: Reports: No Symptoms Gastrointestinal: Reports: No Symptoms Musculoskeletal: Reports: Other (Left flank pain) - Patient Data Vitals - Most Recent: Last Vital Signs Temp 98.3 F 10/18/18 11:42 Pulse 93 10/18/18 11:42 Resp 20 10/18/18 11:42 BP 124/47 L 10/18/18 11:42 Pulse Ox 96 10/18/18 11:42 Weight - Most Recent: 103 lb 12.804 oz I&O - Last 24 Hours: Intake & Output 10/17/18 10/18/18 10/18/18 22:59 06:59 14:59 Intake Total 700 Balance 700 Lab Results Last 24 Hours: Laboratory Results - last 24 hr 10/17/18 10/17/18 10/17/18 Range/Units 22:25 22:25 22:25 WBC 19.3 H (4.5-11.0) K/uL RBC 3.74 (3.30-5.50) M/uL Hgb 11.6 L (12.0-15.0) g/dL Hct 35.8 L (36.0-48.0) % MCV 96 (80-98) fL MCH 31 (27-31) pg MCHC 32 (32-36) % Plt Count 317 (150-400) K/uL Neut % (Auto) 83 H (36-66) % Lymph % (Auto) 6 L (24-44) % [place] % (Auto) 10 H (2-6) % Eos % (Auto) 0 L (2-4) % Baso % (Auto) 0 (0-1) % Sodium 134 L (140-148) mmol/L Potassium 4.3 (3.6-5.2) mmol/L Chloride 100 (100-108) mmol/L Carbon Dioxide 19 L (21-32) mmol/L Anion Gap 19.3 H (5.0-14.0) mmol/L BUN 50 H (7-18) mg/dL Creatinine 1.8 H (0.6-1.0) mg/dL Est Cr Clr Drug Dosing 21.35 mL/min Estimated GFR (MDRD) 29 L (>60) Glucose 123 H (74-106) mg/dL Lactic Acid 1.0 (0.4-2.0) mmol/L Calcium 9.0 (8.5-10.1) mg/dL Total Bilirubin 0.2 (0.2-1.0) mg/dL AST 46 H D (15-37) U/L ALT 28 (12-78) U/L Alkaline Phosphatase 129 H (46-116) U/L Ammonia (11-32) mmol/L C-Reactive Protein (0.0-0.3) mg/dL Total Protein 7.2 (6.4-8.2) g/dL Albumin 2.7 L (3.4-5.0) g/dL Globulin 4.5 H (2.3-3.5) g/dL Albumin/Globulin Ratio 0.6 L (1.2-2.2) Amylase (25-115) U/L Lipase (73-393) U/L 10/17/18 10/17/18 10/17/18 Range/Units 23:05 23:09 23:57 WBC (4.5-11.0) K/uL RBC (3.30-5.50) M/uL Hgb (12.0-15.0) g/dL Hct (36.0-48.0) % MCV (80-98) fL MCH (27-31) pg MCHC (32-36) % Plt Count (150-400) K/uL Neut % (Auto) (36-66) % Lymph % (Auto) (24-44) % [place] % (Auto) (2-6) % Eos % (Auto) (2-4) % Baso % (Auto) (0-1) % Sodium (140-148) mmol/L Potassium (3.6-5.2) mmol/L Chloride (100-108) mmol/L Carbon Dioxide (21-32) mmol/L Anion Gap (5.0-14.0) mmol/L BUN (7-18) mg/dL Creatinine (0.6-1.0) mg/dL Est Cr Clr Drug Dosing mL/min Estimated GFR (MDRD) (>60) Glucose (74-106) mg/dL Lactic Acid (0.4-2.0) mmol/L Calcium (8.5-10.1) mg/dL Total Bilirubin (0.2-1.0) mg/dL AST (15-37) U/L ALT (12-78) U/L Alkaline Phosphatase (46-116) U/L Ammonia 3 L (11-32) mmol/L C-Reactive Protein 7.19 H (0.0-0.3) mg/dL Total Protein (6.4-8.2) g/dL Albumin (3.4-5.0) g/dL Globulin (2.3-3.5) g/dL Albumin/Globulin Ratio (1.2-2.2) Amylase 68 (25-115) U/L Lipase 154 (73-393) U/L 10/18/18 10/18/18 Range/Units 05:11 05:11 WBC 16.6 H (4.5-11.0) K/uL RBC 3.60 (3.30-5.50) M/uL Hgb 11.1 L (12.0-15.0) g/dL Hct 34.7 L (36.0-48.0) % MCV 96 (80-98) fL MCH 31 (27-31) pg MCHC 32 (32-36) % Plt Count 281 (150-400) K/uL Neut % (Auto) 86 H (36-66) % Lymph % (Auto) 5 L (24-44) % [place] % (Auto) 8 H (2-6) % Eos % (Auto) 0 L (2-4) % Baso % (Auto) 0 (0-1) % Sodium 136 L (140-148) mmol/L Potassium 3.5 L (3.6-5.2) mmol/L Chloride 104 (100-108) mmol/L Carbon Dioxide 18 L (21-32) mmol/L Anion Gap 17.5 H (5.0-14.0) mmol/L BUN 45 H (7-18) mg/dL Creatinine 1.6 H (0.6-1.0) mg/dL Est Cr Clr Drug Dosing 27.10 mL/min Estimated GFR (MDRD) 33 L (>60) Glucose 116 H (74-106) mg/dL Lactic Acid (0.4-2.0) mmol/L Calcium 8.2 L (8.5-10.1) mg/dL Total Bilirubin (0.2-1.0) mg/dL AST (15-37) U/L ALT (12-78) U/L Alkaline Phosphatase (46-116) U/L Ammonia (11-32) mmol/L C-Reactive Protein (0.0-0.3) mg/dL Total Protein (6.4-8.2) g/dL Albumin (3.4-5.0) g/dL Globulin (2.3-3.5) g/dL Albumin/Globulin Ratio (1.2-2.2) Amylase (25-115) U/L Lipase (73-393) U/L Med Orders - Current: Current Medications Acetaminophen (Tylenol) 650 mg PO Q4H PRN PRN Reason: Pain (Mild 1-3)/fever Last Admin: 10/18/18 07:37 Dose: 650 mg Albuterol (Proventil Neb Soln) 2.5 mg NEB Q4H PRN PRN Reason: Shortness Of Breath/wheezing Albuterol/Ipratropium (Duoneb 3.0-0.5 Mg/3 Ml) 3 ml NEB QIDRT [facility] Last Admin: 10/18/18 11:00 Dose: 3 ml Amlodipine Besylate (Norvasc) 10 mg PO DAILY [facility] Last Admin: 10/18/18 08:34 Dose: 10 mg Carvedilol (Coreg) 6.25 mg PO DAILY [facility] Last Admin: 10/18/18 08:34 Dose: 6.25 mg Docusate Sodium (Colace) 100 mg PO BID PRN PRN Reason: Constipation Duloxetine HCl (Cymbalta) 60 mg PO DAILY [facility] Last Admin: 10/18/18 08:32 Dose: 60 mg Enoxaparin Sodium (Lovenox) 30 mg SUBCUT Q24H [facility] Ceftriaxone Sodium 1 gm/ (Sodium Chloride) 50 mls @ 100 mls/hr IV Q24H [facility] Sodium Chloride (Normal Saline) 1,000 mls @ 50 mls/hr IV ASDIRECTED [facility] Lorazepam (Ativan) 1 mg IV Q4H PRN PRN Reason: Agitation Losartan Potassium (Cozaar) 50 mg PO DAILY [facility] Last Admin: 10/18/18 08:33 Dose: 50 mg Nicotine (Habitrol) 21 mg TRDERM DAILY [facility] Last Admin: 10/18/18 08:32 Dose: Not Given Ondansetron HCl (Zofran) 4 mg IV Q4H PRN PRN Reason: Nausea/Vomiting Oxycodone HCl (Oxycodone) 5 mg PO Q4H PRN PRN Reason: Pain (moderate 4-6) Last Admin: 10/18/18 07:34 Dose: 5 mg Temazepam (Restoril) 15 mg PO BEDTIME PRN PRN Reason: Sleep Discontinued Medications Amlodipine Besylate (Norvasc) 10 mg PO DAILY [facility] Enoxaparin Sodium (Lovenox) 30 mg SUBCUT DAILY [facility] Enoxaparin Sodium (Lovenox) 30 mg SUBCUT ONETIME ONE Stop: 10/18/18 00:31 Last Admin: 10/18/18 00:36 Dose: 30 mg Ceftriaxone Sodium 2 gm/ (Sodium Chloride) 50 mls @ 100 mls/hr IV ONETIME ONE Stop: 10/17/18 22:44 Last Admin: 10/17/18 22:31 Dose: 100 mls/hr Sodium Chloride (Normal Saline) 1,000 mls @ 1,000 mls/hr IV ASDIRECTED [facility] Last Admin: 10/17/18 22:31 Dose: 1,000 mls/hr Sodium Chloride (Normal Saline) 1,000 mls @ 125 mls/hr IV ASDIRECTED [facility] Last Admin: 10/18/18 08:28 Dose: 125 mls/hr Morphine Sulfate (Morphine) 2 mg IVPUSH Q2H PRN PRN Reason: Pain (severe 7-10) Nicotine (Habitrol) 21 mg TRDERM ONETIME ONE Stop: 10/18/18 00:31 Last Admin: 10/18/18 00:36 Dose: 21 mg Potassium Chloride (Klor-Con M20) 40 meq PO ONETIME ONE Stop: 10/18/18 09:01 Last Admin: 10/18/18 09:31 Dose: 40 meq - Exam Quality Assessment: DVT Prophylaxis General: Alert, Oriented, Cooperative, Mild Distress Lungs: Clear to Auscultation, Normal Respiratory Effort Cardiovascular: Regular Rate, Regular Rhythm, No Murmurs GI/Abdominal Exam: Soft, Non-Tender, No Organomegaly, No Distention Extremities: Non-Tender, No Pedal Edema - Problem List Review Problem List Initiated/Reviewed/Updated: Yes - My Orders Last 24 Hours: My Active Orders 10/18/18 12:45 Sodium Chloride 0.9% [Normal Saline] 1,000 ml IV ASDIRECTED 10/19/18 05:00 BASIC METABOLIC PANEL,BMP [CHEM] Timed CBC WITH AUTO DIFF [HEME] Timed - Plan Plan:: ASSESSMENT AND PLAN Complicated urinary tract infection with left pyelonephritis - Ms. Gann has history of cervical cancer with mets to bladder and pelvis. She had radiation to the area. Now has chronic urinary leakage and recurrent urinary tract infections. -Rocephin 1 gram IV every 24 hours, pending culture results -IV fluids NS 50ml/hr -I&O -urine and blood cultures pending Hypertension and CAD -monitor vital signs every 4 hours -continue home medication Addiction to Drug - Ms. 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 She is from the [facility] area. -IV Ativan 1 mg every 4 hours as needed for agitation -sleep aid Tobacco use - staff at [facility] report she smokes as much as possible, 2 packs per day. Discussed with Ms. Gann no smoking in hospital. -Nicotine patch 21 mg topical. MAINTENANCE ISSUES -DVT prophylaxis; Lovonex 30 mg subcut -GI prophylaxis; IV Protonix 20 mg daily -Kohli catheter; not indicated -Nutrition; regular diet -Nicotine dependence; nicotine patch CODE STATUS-FULL ADMISSION STATUS-patient will be admitted to inpatient status, expect at least a 2 night hospital stay for evaluation and management of problems as outlined above. At the time of this admission I do not reasonably expected evaluation and management of this problem will require more than a 96 hour hospital stay. DISPOSITION-[facility] hospital stay. Primary Care Provider: SERENA Ludwig. , no local provider noted Hospitalist: Dr. Thanh M.D.
[2018-10-18] MEDS: LORazepam 2 MG/ML SDV IV PRN (18:44)
[2018-10-18] MEDS: Enoxaparin 30 MG/0.3 ML Syringe SUBCUT SCH (20:35)
[2018-10-18] MEDS ORDERED: cefTRIAXone 1 GM in Sodium Chloride 0.9% 50 ML IV SCH (21:00)
[2018-10-19] MEDS: Acetaminophen 325 MG Tab PO PRN ×2 (00:49→08:43)
[2018-10-19] MEDS: LORazepam 2 MG/ML SDV IV PRN ×2 (01:44→18:08)
[2018-10-19] MEDS: Albuterol/Ipratropium 3.0-0.5 MG/3 ML Neb Soln NEB SCH ×4 (06:57→21:37)
[2018-10-19] MEDS: Carvedilol 6.25 MG Tab PO SCH (08:41)
[2018-10-19] MEDS: Losartan 50 MG Tab PO SCH (08:42)
[2018-10-19] MEDS: DULoxetine 30 MG Cap PO SCH (08:42)
[2018-10-19] MEDS: amLODIPine 10 MG Tab PO SCH (08:42)
[2018-10-19] MEDS: Nicotine 21 MG/24 Hr Patch TRDERM SCH (08:43)
[2018-10-19] MEDS: oxyCODONE 5 MG Tab PO PRN (10:15)
[2018-10-19] MEDS ORDERED: Furosemide 40 MG/4 ML VIAL IVPUSH ONE (15:15)
[2018-10-19] MEDS ORDERED: Propofol 200 MG/20 ML SDV IV ONE ×2 (15:30)
[2018-10-19] MEDS ORDERED: Heparin Sodium 5,000 UNITS in Sodium Chloride 0.9% 500 ML IV SCH (16:00)
[2018-10-19] MEDS ORDERED: methylPREDNISolone Sodium Succinate 125 MG/2 ML SDV IVPUSH ONE (16:10)
--- NOTE | 2018-10-19 17:50 | CRLCR ---
INDICATION: Intubation, low O2 TECHNIQUE: Chest 1 view COMPARISON: None FINDINGS/IMPRESSION: Endotracheal tube tip lies 3.7 centimeters above the calvin. Focal infiltrate is demonstrated in the right upper lobe. This may represent pneumonia in the appropriate clinical setting There is slightly increased prominence of the pulmonary vascular markings, which may be due to congestion or supine technique. Assessment for pneumothorax is limited in the supine position. Dictated by Bina Moran MD @ Oct 19 2018 5:36PM Signed by Dr. Bina Moran @ Oct 19 2018 5:49PM
--- NOTE | 2018-10-19 20:01 | PCM.PN ---
- General Info Date of Service: 10/19/18 Subjective Update: Ms. Gann did seem to be improving by this morning, more alert and interactive. She did experience episodic hypoxia during the night, when I saw her this morning was breathing comfortably on room air. Unfortunately this afternoon developed increased respiratory compromise with persistent hypoxia despite increasing levels of supplemental oxygen. She developed extreme respiratory compromise and was intubated. Status post intubation she has been stable with good oxygenation on the ventilator. Vital signs have been stable and she is currently sedated. Follow-up blood gases after intubation and mechanical ventilation appear to be stable. Chest x-ray obtained after intubation shows evidence of a right lung infiltrate. She is unable to provide meaningful history at this time concerning symptoms or review of systems because of intubation, mechanical ventilation, and sedation. - Patient Data Vitals - Most Recent: Last Vital Signs Temp 97.4 F 10/19/18 18:09 Pulse 116 H 10/19/18 14:41 Resp 24 H 10/19/18 18:09 BP 147/62 H 10/19/18 18:09 Pulse Ox 98 10/19/18 18:09 Weight - Most Recent: 103 lb 12.804 oz I&O - Last 24 Hours: Intake & Output 10/19/18 10/19/18 10/19/18 06:59 14:59 22:59 Intake Total 628 600 136 Output Total 400 Balance 628 600 -264 Lab Results Last 24 Hours: Laboratory Results - last 24 hr 10/19/18 10/19/18 10/19/18 Range/Units 05:00 05:00 15:56 WBC 10.9 (4.5-11.0) K/uL RBC 3.39 (3.30-5.50) M/uL Hgb 10.4 L (12.0-15.0) g/dL Hct 33.0 L (36.0-48.0) % MCV 97 (80-98) fL MCH 31 (27-31) pg MCHC 32 (32-36) % Plt Count 255 (150-400) K/uL Neut % (Auto) 88 H (36-66) % Lymph % (Auto) 6 L (24-44) % [place] % (Auto) 6 (2-6) % Eos % (Auto) 0 L (2-4) % Baso % (Auto) 0 (0-1) % Puncture Site Line ABG pH 7.242 L (7.350-7.450) ABG pCO2 40.1 (35.0-42.0) mmHg ABG pO2 63.2 L (75.0-100.0) mmHg ABG HCO3 16.6 L (22.0-26.0) mmol/L ABG Total CO2 15.9 L (21.0-25.0) mmol/L ABG O2 Saturation 87.5 L (95.0-98.0) % ABG O2 Content 13.0 L (15.0-23.0) %vol ABG Base Excess -9.7 mm/L ABG Hemoglobin 10.6 L (12.0-16.0) g/dL ABG Oxyhemoglobin 86.4 % ABG Carboxyhemoglobin 0.0 (0.0-1.6) % ABG Methemoglobin 1.2 % Asim Test TNP O2 Delivery Device Ventilator Sodium 137 L (140-148) mmol/L Potassium 4.2 (3.6-5.2) mmol/L Chloride 108 (100-108) mmol/L Carbon Dioxide 17 L (21-32) mmol/L Anion Gap 16.2 H (5.0-14.0) mmol/L BUN 35 H (7-18) mg/dL Creatinine 1.5 H (0.6-1.0) mg/dL Est Cr Clr Drug Dosing 28.90 mL/min Estimated GFR (MDRD) 35 L (>60) Glucose 155 H (74-106) mg/dL Lactic Acid (0.4-2.0) mmol/L Calcium 8.3 L (8.5-10.1) mg/dL Total Bilirubin (0.2-1.0) mg/dL AST (15-37) U/L ALT (12-78) U/L Alkaline Phosphatase (46-116) U/L Troponin I (0.000-0.056) ng/mL Total Protein (6.4-8.2) g/dL Albumin (3.4-5.0) g/dL Globulin (2.3-3.5) g/dL Albumin/Globulin Ratio (1.2-2.2) 10/19/18 10/19/18 10/19/18 Range/Units 16:30 16:30 16:39 WBC 11.0 (4.5-11.0) K/uL RBC 3.31 (3.30-5.50) M/uL Hgb 10.4 L (12.0-15.0) g/dL Hct 32.2 L (36.0-48.0) % MCV 97 (80-98) fL MCH 31 (27-31) pg MCHC 32 (32-36) % Plt Count 246 (150-400) K/uL Neut % (Auto) 89 H (36-66) % Lymph % (Auto) 5 L (24-44) % [place] % (Auto) 6 (2-6) % Eos % (Auto) 0 L (2-4) % Baso % (Auto) 0 (0-1) % Puncture Site Rt.brachial ABG pH 7.342 L (7.350-7.450) ABG pCO2 29.1 L (35.0-42.0) mmHg ABG pO2 109.0 H (75.0-100.0) mmHg ABG HCO3 15.4 L (22.0-26.0) mmol/L ABG Total CO2 14.3 L (21.0-25.0) mmol/L ABG O2 Saturation 97.8 (95.0-98.0) % ABG O2 Content 14.7 L (15.0-23.0) %vol ABG Base Excess -8.9 mm/L ABG Hemoglobin 10.7 L (12.0-16.0) g/dL ABG Oxyhemoglobin 96.5 % ABG Carboxyhemoglobin 0.9 (0.0-1.6) % ABG Methemoglobin 0.4 % Asim Test TNP O2 Delivery Device Ventilator Sodium 136 L (140-148) mmol/L Potassium 4.4 (3.6-5.2) mmol/L Chloride 107 (100-108) mmol/L Carbon Dioxide 18 L (21-32) mmol/L Anion Gap 15.4 H (5.0-14.0) mmol/L BUN 29 H (7-18) mg/dL Creatinine 1.4 H (0.6-1.0) mg/dL Est Cr Clr Drug Dosing 30.97 mL/min Estimated GFR (MDRD) 38 L (>60) Glucose 149 H (74-106) mg/dL Lactic Acid (0.4-2.0) mmol/L Calcium 8.2 L (8.5-10.1) mg/dL Total Bilirubin 0.2 (0.2-1.0) mg/dL AST 66 H (15-37) U/L ALT 38 (12-78) U/L Alkaline Phosphatase 112 (46-116) U/L Troponin I (0.000-0.056) ng/mL Total Protein 5.7 L (6.4-8.2) g/dL Albumin 2.0 L (3.4-5.0) g/dL Globulin 3.7 H (2.3-3.5) g/dL Albumin/Globulin Ratio 0.5 L (1.2-2.2) 10/19/18 10/19/18 Range/Units 17:03 17:03 WBC (4.5-11.0) K/uL RBC (3.30-5.50) M/uL Hgb (12.0-15.0) g/dL Hct (36.0-48.0) % MCV (80-98) fL MCH (27-31) pg MCHC (32-36) % Plt Count (150-400) K/uL Neut % (Auto) (36-66) % Lymph % (Auto) (24-44) % [place] % (Auto) (2-6) % Eos % (Auto) (2-4) % Baso % (Auto) (0-1) % Puncture Site ABG pH (7.350-7.450) ABG pCO2 (35.0-42.0) mmHg ABG pO2 (75.0-100.0) mmHg ABG HCO3 (22.0-26.0) mmol/L ABG Total CO2 (21.0-25.0) mmol/L ABG O2 Saturation (95.0-98.0) % ABG O2 Content (15.0-23.0) %vol ABG Base Excess mm/L ABG Hemoglobin (12.0-16.0) g/dL ABG Oxyhemoglobin % ABG Carboxyhemoglobin (0.0-1.6) % ABG Methemoglobin % Asim Test O2 Delivery Device Sodium (140-148) mmol/L Potassium (3.6-5.2) mmol/L Chloride (100-108) mmol/L Carbon Dioxide (21-32) mmol/L Anion Gap (5.0-14.0) mmol/L BUN (7-18) mg/dL Creatinine (0.6-1.0) mg/dL Est Cr Clr Drug Dosing mL/min Estimated GFR (MDRD) (>60) Glucose (74-106) mg/dL Lactic Acid 1.1 (0.4-2.0) mmol/L Calcium (8.5-10.1) mg/dL Total Bilirubin (0.2-1.0) mg/dL AST (15-37) U/L ALT (12-78) U/L Alkaline Phosphatase (46-116) U/L Troponin I 0.019 (0.000-0.056) ng/mL Total Protein (6.4-8.2) g/dL Albumin (3.4-5.0) g/dL Globulin (2.3-3.5) g/dL Albumin/Globulin Ratio (1.2-2.2) Daniel Results Last 24 Hours: Microbiology 10/17/18 22:30 Aerobic Blood Culture - Preliminary Blood - Venous - Lab Draw NO GROWTH AFTER 1 DAY Anaerobic Blood Culture - Preliminary NO GROWTH AFTER 1 DAY 10/17/18 22:25 Aerobic Blood Culture - Preliminary Blood - Arm, Right NO GROWTH AFTER 1 DAY Anaerobic Blood Culture - Preliminary NO GROWTH AFTER 1 DAY Med Orders - Current: Current Medications Acetaminophen (Tylenol) 650 mg PO Q4H PRN PRN Reason: Pain (Mild 1-3)/fever Last Admin: 10/19/18 08:43 Dose: 650 mg Albuterol (Proventil Neb Soln) 2.5 mg NEB Q4H PRN PRN Reason: Shortness Of Breath/wheezing Albuterol/Ipratropium (Duoneb 3.0-0.5 Mg/3 Ml) 3 ml NEB QIDRT [facility] Last Admin: 10/19/18 14:35 Dose: 3 ml Amlodipine Besylate (Norvasc) 10 mg PO DAILY [facility] Last Admin: 10/19/18 08:42 Dose: 10 mg Carvedilol (Coreg) 6.25 mg PO DAILY [facility] Last Admin: 10/19/18 08:41 Dose: 6.25 mg Docusate Sodium (Colace) 100 mg PO BID PRN PRN Reason: Constipation Duloxetine HCl (Cymbalta) 60 mg PO DAILY [facility] Last Admin: 10/19/18 08:42 Dose: 60 mg Enoxaparin Sodium (Lovenox) 30 mg SUBCUT Q24H [facility] Last Admin: 10/18/18 20:35 Dose: 30 mg Sodium Chloride (Normal Saline) 1,000 mls @ 50 mls/hr IV ASDIRECTED [facility] Last Admin: 10/18/18 17:42 Dose: 50 mls/hr Heparin Sodium (Porcine) 5,000 (units/ Sodium Chloride) 501 mls @ 5 mls/hr IV ASDIRECTED [facility] Last Admin: 10/19/18 16:44 Dose: 5 mls/hr Propofol (Diprivan 100 Ml) 100 mls @ 2.825 mls/hr IV TITRATE YUNIOR; Protocol Last Titration: 10/19/18 18:05 Dose: 70 mcg/kg/min, 19.775 mls/hr Piperacillin Sod/Tazobactam (Sod 3.375 gm/ Sodium Chloride) 50 mls @ 100 mls/ hr IV Q6H [facility] Lorazepam (Ativan) 1 mg IV Q4H PRN PRN Reason: Agitation Last Admin: 10/19/18 18:08 Dose: 1 mg Losartan Potassium (Cozaar) 50 mg PO DAILY [facility] Last Admin: 10/19/18 08:42 Dose: 50 mg Methylprednisolone Sodium Succinate (Solu-Medrol) 40 mg IVPUSH Q6H [facility] Nicotine (Habitrol) 21 mg TRDERM DAILY [facility] Last Admin: 10/19/18 08:43 Dose: 21 mg Ondansetron HCl (Zofran) 4 mg IV Q4H PRN PRN Reason: Nausea/Vomiting Oxycodone HCl (Oxycodone) 5 mg PO Q4H PRN PRN Reason: Pain (moderate 4-6) Last Admin: 10/19/18 10:15 Dose: 5 mg Temazepam (Restoril) 15 mg PO BEDTIME PRN PRN Reason: Sleep Discontinued Medications Amlodipine Besylate (Norvasc) 10 mg PO DAILY [facility] Enoxaparin Sodium (Lovenox) 30 mg SUBCUT DAILY [facility] Enoxaparin Sodium (Lovenox) 30 mg SUBCUT ONETIME ONE Stop: 10/18/18 00:31 Last Admin: 10/18/18 00:36 Dose: 30 mg Furosemide (Lasix) 40 mg IVPUSH ONETIME ONE Stop: 10/19/18 15:16 Last Admin: 10/19/18 15:15 Dose: 40 mg Ceftriaxone Sodium 2 gm/ (Sodium Chloride) 50 mls @ 100 mls/hr IV ONETIME ONE Stop: 10/17/18 22:44 Last Admin: 10/17/18 22:31 Dose: 100 mls/hr Sodium Chloride (Normal Saline) 1,000 mls @ 1,000 mls/hr IV ASDIRECTED [facility] Last Admin: 10/17/18 22:31 Dose: 1,000 mls/hr Ceftriaxone Sodium 1 gm/ (Sodium Chloride) 50 mls @ 100 mls/hr IV Q24H [facility] Last Admin: 10/18/18 20:35 Dose: 100 mls/hr Sodium Chloride (Normal Saline) 1,000 mls @ 125 mls/hr IV ASDIRECTED [facility] Last Admin: 10/18/18 08:28 Dose: 125 mls/hr Methylprednisolone Sodium Succinate (Solu-Medrol) 125 mg IVPUSH ONETIME ONE Stop: 10/19/18 16:11 Last Admin: 10/19/18 16:39 Dose: 125 mg Morphine Sulfate (Morphine) 2 mg IVPUSH Q2H PRN PRN Reason: Pain (severe 7-10) Nicotine (Habitrol) 21 mg TRDERM ONETIME ONE Stop: 10/18/18 00:31 Last Admin: 10/18/18 00:36 Dose: 21 mg Potassium Chloride (Klor-Con M20) 40 meq PO ONETIME ONE Stop: 10/18/18 09:01 Last Admin: 10/18/18 09:31 Dose: 40 meq Propofol (Diprivan 20 Ml) 200 mg IV ONETIME ONE Stop: 10/19/18 15:31 Last Admin: 10/19/18 15:30 Dose: 200 mg Propofol (Diprivan 20 Ml) 200 mg IV .STK-MED ONE Stop: 10/19/18 15:31 - Exam Quality Assessment: Supplemental Oxygen (Ventilator), Urine Catheter, DVT Prophylaxis General: Sedated, Lethargic Neck: Supple Lungs: Decreased Breath Sounds, Wheezing. No: Crackles, Rales, Rhonchi Cardiovascular: Regular Rhythm, No Murmurs, Tachycardia GI/Abdominal Exam: Soft, Non-Tender, No Organomegaly, No Distention Extremities: Non-Tender, No Pedal Edema Skin: Warm, Dry - Problem List Review Problem List Initiated/Reviewed/Updated: Yes - My Orders Last 24 Hours: My Active Orders 10/19/18 15:54 Patient Status [ADT] Routine Cardiac Monitoring [RC] .As Directed 10/19/18 15:58 Mechanical Ventilation [RT Ventilator, Adult] [RC] ASDIRECTED Urinary Catheter Assessment [RC] ASDIRECTED 10/19/18 16:00 Insert Kohli Catheter [Insert Urinary Catheter] [OM.PC] Q24H RASS Sedation Scale [RC] ASDIRECTED Heparin Sodium 5,000 units Sodium Chloride 0.9% [Normal Saline] 500 ml IV ASDIRECTED Propofol [Diprivan 100 ML] 100 ml IV TITRATE Desired Level of Sedation (RASS) [AST] Click to Edit 10/19/18 17:04 EKG Documentation Completion [RC] ASDIRECTED EKG 12 Lead [EK] Stat 10/19/18 18:09 CULTURE RESPIRATORY + SMEAR [RM] Stat Blood Culture x2 Reflex Set [OM.PC] Urgent 10/19/18 18:30 CULTURE BLOOD [BC] Stat CULTURE BLOOD [BC] Stat 10/19/18 19:30 Piperacillin/Tazobactam [Zosyn] 3.375 gm Sodium Chloride 0.9% [Normal Saline] 50 ml IV Q6H 10/19/18 20:00 methylPREDNISolone Sod Succ [Solu-MEDROL] 40 mg IVPUSH Q6H 10/20/18 05:00 Chest 1V Frontal [CR] DAILY CBC WITH AUTO DIFF [HEME] Timed COMPREHENSIVE METABOLIC PN,CMP [CHEM] Timed MAGNESIUM [CHEM] Timed 10/21/18 05:00 Chest 1V Frontal [CR] DAILY 10/22/18 05:00 Chest 1V Frontal [CR] DAILY - Plan Plan:: ASSESSMENT AND PLAN Acute on chronic hypoxic respiratory failure-likely secondary to right lung pneumonia and underlying COPD with exacerbation -Mechanical ventilation -Follow up chest x-ray in a.m. -IV sedation Right lung pneumonia-I suspect that this was present on admission, although she denied significant respiratory symptoms. -Repeat blood cultures and sputum culture pending -IV Zosyn and levofloxacin Complicated urinary tract infection with left pyelonephritis - Ms. Gann has history of cervical cancer with mets to bladder and pelvis. She had radiation to the area. Now has chronic urinary leakage and recurrent urinary tract infections. -Discontinue ceftriaxone, current antibiotic therapy should provide adequate coverage for UTI -IV fluids NS TKO -I&O -urine and blood cultures pending Hypertension and CAD -monitor vital signs every 4 hours -continue home medication Addiction to Drug - Ms. 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 She is from the [facility] area. -IV Ativan 1 mg every 4 hours as needed for agitation -sleep aid Tobacco use - staff at [place] report she smokes as much as possible, 2 packs per day. Discussed with Ms. Gann no smoking in hospital. -Nicotine patch 21 mg topical. MAINTENANCE ISSUES -DVT prophylaxis; Lovonex 30 mg subcut -GI prophylaxis; IV Protonix 20 mg daily -Kohli catheter; not indicated -Nutrition; regular diet -Nicotine dependence; nicotine patch CODE STATUS-FULL ADMISSION STATUS-patient will be admitted to inpatient status, expect at least a 2 night hospital stay for evaluation and management of problems as outlined above. At the time of this admission I do not reasonably expected evaluation and management of this problem will require more than a 96 hour hospital stay. DISPOSITION-[facility] hospital stay. Primary Care Provider: [place]. , no local provider noted Hospitalist: Dr. Thanh M.D. 1 hour of critical care time was spent in the direct management and evaluation of this patient while on the medical surgical floor and after transfer to the ICU.
--- NOTE | 2018-10-19 20:08 | ANES ---
DATE OF SERVICE: 10/19/2018 TIME: Approximately 1540. You could see the time of code rapid response. I was called to room 205 to evaluate Ms. Gann for respiratory depression. Dr. Law is up there and wishes to have her intubated. She was in extreme respiratory distress. I did give her a total 200 mg of propofol and a 8.0 endotracheal tube was placed after MAC 3 was inserted. Positive bilateral breath sounds were obtained and positive end-tidal CO2. Saturations increased up into the 90s. Then, they transferred her down the ICU where I did put a 20-gauge left radial catheter in. It had good waveform and adequate blood return. It was sutured with 2-0 Prolene and secured with Tegaderm and tape. The patient tolerated both procedures very nicely. Edilberto Flores CRNA /[id number]
[2018-10-19] MEDS: Piperacillin/Tazobactam 3.375 GM in Sodium Chloride 0.9% 50 ML IV SCH (20:15)
[2018-10-19] MEDS: Enoxaparin 30 MG/0.3 ML Syringe SUBCUT SCH (21:37)
[2018-10-19] MEDS: methylPREDNISolone Sodium Succinate 40 MG/1 ML SDV IVPUSH SCH (21:47)
[2018-10-20] MEDS: Piperacillin/Tazobactam 3.375 GM in Sodium Chloride 0.9% 50 ML IV SCH (01:57)
[2018-10-20] MEDS: methylPREDNISolone Sodium Succinate 40 MG/1 ML SDV IVPUSH SCH ×4 (04:29→23:05)
--- NOTE | 2018-10-20 05:22 | CRLCR ---
INDICATION: Respiratory failure, pneumonia TECHNIQUE: Chest radiograph 1 view COMPARISON: 10/19/2018 FINDINGS: Mediastinum: The mediastinum is normal in appearance. The heart silhouette is normal in size and morphology. ET tube present with tip 4.2 cm from the calvin. Lung: Minimal right basilar atelectasis is seen. There is improved aeration of left lung base present with decreasing consolidation. Perihilar edema has nearly resolved. No sign of pleural effusion seen. No pneumothorax is identified. IMPRESSION: 1. Minimal right basilar atelectasis is seen. Dictated by Jason Floyd MD @ 10/20/2018 5:21:25 AM Dictated by: Jason Floyd MD @ 10/20/2018 05:21:29 (Electronically Signed)
[2018-10-20] MEDS: Sodium Chloride 0.9% 1,000 ML IV SCH (05:51)
[2018-10-20] MEDS: Albuterol/Ipratropium 3.0-0.5 MG/3 ML Neb Soln NEB SCH ×4 (07:28→21:29)
[2018-10-20] MEDS: Piperacillin/Tazobactam/Dext 3.375 GM in Premix Bag 1 BAG IV SCH ×3 (08:19→20:10)
--- NOTE | 2018-10-20 09:33 | PCM.PN ---
- General Info Date of Service: 10/20/18 Subjective Update: Ms. Gann has improved since transfer to the intensive care unit with intubation and mechanical ventilation. FiO2 is now down to 40% and vital signs have otherwise been stable. Otherwise tolerating current level of ventilatory support. She is unable to provide meaningful information concerning symptoms or review of systems because of intubation and sedation. - Patient Data Vitals - Most Recent: Last Vital Signs Temp 96.0 F 10/20/18 08:00 Pulse 62 10/20/18 08:00 Resp 14 10/20/18 08:00 BP 141/59 H 10/20/18 08:00 Pulse Ox 95 10/20/18 07:32 Weight - Most Recent: 103 lb 12.804 oz I&O - Last 24 Hours: Intake & Output 10/19/18 10/20/18 10/20/18 22:59 06:59 14:59 Intake Total 136 1089 Output Total 400 550 Balance -264 539 Lab Results Last 24 Hours: Laboratory Results - last 24 hr 10/19/18 10/19/18 10/19/18 Range/Units 15:56 16:30 16:30 WBC 11.0 (4.5-11.0) K/uL RBC 3.31 (3.30-5.50) M/uL Hgb 10.4 L (12.0-15.0) g/dL Hct 32.2 L (36.0-48.0) % MCV 97 (80-98) fL MCH 31 (27-31) pg MCHC 32 (32-36) % Plt Count 246 (150-400) K/uL Neut % (Auto) 89 H (36-66) % Lymph % (Auto) 5 L (24-44) % [facility] % (Auto) 6 (2-6) % Eos % (Auto) 0 L (2-4) % Baso % (Auto) 0 (0-1) % Puncture Site Line ABG pH 7.242 L (7.350-7.450) ABG pCO2 40.1 (35.0-42.0) mmHg ABG pO2 63.2 L (75.0-100.0) mmHg ABG HCO3 16.6 L (22.0-26.0) mmol/L ABG Total CO2 15.9 L (21.0-25.0) mmol/L ABG O2 Saturation 87.5 L (95.0-98.0) % ABG O2 Content 13.0 L (15.0-23.0) %vol ABG Base Excess -9.7 mm/L ABG Hemoglobin 10.6 L (12.0-16.0) g/dL ABG Oxyhemoglobin 86.4 % ABG Carboxyhemoglobin 0.0 (0.0-1.6) % ABG Methemoglobin 1.2 % Asim Test TNP O2 Delivery Device Ventilator Sodium 136 L (140-148) mmol/L Potassium 4.4 (3.6-5.2) mmol/L Chloride 107 (100-108) mmol/L Carbon Dioxide 18 L (21-32) mmol/L Anion Gap 15.4 H (5.0-14.0) mmol/L BUN 29 H (7-18) mg/dL Creatinine 1.4 H (0.6-1.0) mg/dL Est Cr Clr Drug Dosing 30.97 mL/min Estimated GFR (MDRD) 38 L (>60) Glucose 149 H (74-106) mg/dL Lactic Acid (0.4-2.0) mmol/L Calcium 8.2 L (8.5-10.1) mg/dL Magnesium (1.8-2.4) mg/dL Total Bilirubin 0.2 (0.2-1.0) mg/dL AST 66 H (15-37) U/L ALT 38 (12-78) U/L Alkaline Phosphatase 112 (46-116) U/L Troponin I (0.000-0.056) ng/mL Total Protein 5.7 L (6.4-8.2) g/dL Albumin 2.0 L (3.4-5.0) g/dL Globulin 3.7 H (2.3-3.5) g/dL Albumin/Globulin Ratio 0.5 L (1.2-2.2) 10/19/18 10/19/18 10/19/18 Range/Units 16:39 17:03 17:03 WBC (4.5-11.0) K/uL RBC (3.30-5.50) M/uL Hgb (12.0-15.0) g/dL Hct (36.0-48.0) % MCV (80-98) fL MCH (27-31) pg MCHC (32-36) % Plt Count (150-400) K/uL Neut % (Auto) (36-66) % Lymph % (Auto) (24-44) % [facility] % (Auto) (2-6) % Eos % (Auto) (2-4) % Baso % (Auto) (0-1) % Puncture Site Rt.brachial ABG pH 7.342 L (7.350-7.450) ABG pCO2 29.1 L (35.0-42.0) mmHg ABG pO2 109.0 H (75.0-100.0) mmHg ABG HCO3 15.4 L (22.0-26.0) mmol/L ABG Total CO2 14.3 L (21.0-25.0) mmol/L ABG O2 Saturation 97.8 (95.0-98.0) % ABG O2 Content 14.7 L (15.0-23.0) %vol ABG Base Excess -8.9 mm/L ABG Hemoglobin 10.7 L (12.0-16.0) g/dL ABG Oxyhemoglobin 96.5 % ABG Carboxyhemoglobin 0.9 (0.0-1.6) % ABG Methemoglobin 0.4 % Asim Test TNP O2 Delivery Device Ventilator Sodium (140-148) mmol/L Potassium (3.6-5.2) mmol/L Chloride (100-108) mmol/L Carbon Dioxide (21-32) mmol/L Anion Gap (5.0-14.0) mmol/L BUN (7-18) mg/dL Creatinine (0.6-1.0) mg/dL Est Cr Clr Drug Dosing mL/min Estimated GFR (MDRD) (>60) Glucose (74-106) mg/dL Lactic Acid 1.1 (0.4-2.0) mmol/L Calcium (8.5-10.1) mg/dL Magnesium (1.8-2.4) mg/dL Total Bilirubin (0.2-1.0) mg/dL AST (15-37) U/L ALT (12-78) U/L Alkaline Phosphatase (46-116) U/L Troponin I 0.019 (0.000-0.056) ng/mL Total Protein (6.4-8.2) g/dL Albumin (3.4-5.0) g/dL Globulin (2.3-3.5) g/dL Albumin/Globulin Ratio (1.2-2.2) 10/20/18 10/20/18 Range/Units 05:00 05:00 WBC 5.8 (4.5-11.0) K/uL RBC 3.63 (3.30-5.50) M/uL Hgb 11.2 L (12.0-15.0) g/dL Hct 35.3 L (36.0-48.0) % MCV 97 (80-98) fL MCH 31 (27-31) pg MCHC 32 (32-36) % Plt Count 250 (150-400) K/uL Neut % (Auto) 87 H (36-66) % Lymph % (Auto) 10 L (24-44) % [facility] % (Auto) 3 (2-6) % Eos % (Auto) 0 L (2-4) % Baso % (Auto) 0 (0-1) % Puncture Site ABG pH (7.350-7.450) ABG pCO2 (35.0-42.0) mmHg ABG pO2 (75.0-100.0) mmHg ABG HCO3 (22.0-26.0) mmol/L ABG Total CO2 (21.0-25.0) mmol/L ABG O2 Saturation (95.0-98.0) % ABG O2 Content (15.0-23.0) %vol ABG Base Excess mm/L ABG Hemoglobin (12.0-16.0) g/dL ABG Oxyhemoglobin % ABG Carboxyhemoglobin (0.0-1.6) % ABG Methemoglobin % Asim Test O2 Delivery Device Sodium 140 (140-148) mmol/L Potassium 4.5 (3.6-5.2) mmol/L Chloride 109 H (100-108) mmol/L Carbon Dioxide 20 L (21-32) mmol/L Anion Gap 15.5 H (5.0-14.0) mmol/L BUN 32 H (7-18) mg/dL Creatinine 1.3 H (0.6-1.0) mg/dL Est Cr Clr Drug Dosing 33.35 mL/min Estimated GFR (MDRD) 42 L (>60) Glucose 206 H (74-106) mg/dL Lactic Acid (0.4-2.0) mmol/L Calcium 8.8 (8.5-10.1) mg/dL Magnesium 1.5 L (1.8-2.4) mg/dL Total Bilirubin 0.3 (0.2-1.0) mg/dL AST 59 H (15-37) U/L ALT 42 (12-78) U/L Alkaline Phosphatase 112 (46-116) U/L Troponin I (0.000-0.056) ng/mL Total Protein 6.3 L (6.4-8.2) g/dL Albumin 2.0 L (3.4-5.0) g/dL Globulin 4.3 H (2.3-3.5) g/dL Albumin/Globulin Ratio 0.5 L (1.2-2.2) Daniel Results Last 24 Hours: Microbiology 10/17/18 22:25 Aerobic Blood Culture - Preliminary Blood - Arm, Right NO GROWTH AFTER 2 DAYS Anaerobic Blood Culture - Preliminary NO GROWTH AFTER 2 DAYS 10/17/18 22:30 Aerobic Blood Culture - Preliminary Blood - Venous - Lab Draw NO GROWTH AFTER 2 DAYS Anaerobic Blood Culture - Preliminary NO GROWTH AFTER 2 DAYS 10/19/18 18:09 Gram Stain - Final Trachea Med Orders - Current: Current Medications Acetaminophen (Tylenol) 650 mg PO Q4H PRN PRN Reason: Pain (Mild 1-3)/fever Last Admin: 10/19/18 08:43 Dose: 650 mg Albuterol (Proventil Neb Soln) 2.5 mg NEB Q4H PRN PRN Reason: Shortness Of Breath/wheezing Albuterol/Ipratropium (Duoneb 3.0-0.5 Mg/3 Ml) 3 ml NEB QIDRT [facility] Last Admin: 10/20/18 07:28 Dose: 3 ml Amlodipine Besylate (Norvasc) 10 mg PO DAILY [facility] Last Admin: 10/19/18 08:42 Dose: 10 mg Carvedilol (Coreg) 6.25 mg PO DAILY [facility] Last Admin: 10/19/18 08:41 Dose: 6.25 mg Docusate Sodium (Colace) 100 mg PO BID PRN PRN Reason: Constipation Duloxetine HCl (Cymbalta) 60 mg PO DAILY [facility] Last Admin: 10/19/18 08:42 Dose: 60 mg Enoxaparin Sodium (Lovenox) 30 mg SUBCUT Q24H [facility] Last Admin: 10/19/18 21:37 Dose: 30 mg Heparin Sodium (Porcine) 5,000 (units/ Sodium Chloride) 501 mls @ 5 mls/hr IV ASDIRECTED [facility] Last Admin: 10/19/18 16:44 Dose: 5 mls/hr Propofol (Diprivan 100 Ml) 100 mls @ 2.825 mls/hr IV TITRATE YUNIOR; Protocol Last Admin: 10/20/18 07:04 Dose: 60 mcg/kg/min, 16.95 mls/hr Piperacillin/Tazobactam/ (Dextrose 3.375 gm/ Premix) 50 mls @ 100 mls/hr IV Q6H [facility] Last Admin: 10/20/18 08:19 Dose: 100 mls/hr Magnesium Sulfate 2 gm/ Premix 50 mls @ 25 mls/hr IV Q6H [facility] Stop: 10/20/18 22:59 Lorazepam (Ativan) 1 mg IV Q4H PRN PRN Reason: Agitation Last Admin: 10/19/18 18:08 Dose: 1 mg Losartan Potassium (Cozaar) 50 mg PO DAILY [facility] Last Admin: 10/19/18 08:42 Dose: 50 mg Methylprednisolone Sodium Succinate (Solu-Medrol) 40 mg IVPUSH Q6H [facility] Last Admin: 10/20/18 04:29 Dose: 40 mg Nicotine (Habitrol) 21 mg TRDERM DAILY [facility] Last Admin: 10/19/18 08:43 Dose: 21 mg Ondansetron HCl (Zofran) 4 mg IV Q4H PRN PRN Reason: Nausea/Vomiting Oxycodone HCl (Oxycodone) 5 mg PO Q4H PRN PRN Reason: Pain (moderate 4-6) Last Admin: 10/19/18 10:15 Dose: 5 mg Temazepam (Restoril) 15 mg PO BEDTIME PRN PRN Reason: Sleep Discontinued Medications Amlodipine Besylate (Norvasc) 10 mg PO DAILY [facility] Enoxaparin Sodium (Lovenox) 30 mg SUBCUT DAILY [facility] Enoxaparin Sodium (Lovenox) 30 mg SUBCUT ONETIME ONE Stop: 10/18/18 00:31 Last Admin: 10/18/18 00:36 Dose: 30 mg Furosemide (Lasix) 40 mg IVPUSH ONETIME ONE Stop: 10/19/18 15:16 Last Admin: 10/19/18 15:15 Dose: 40 mg Ceftriaxone Sodium 2 gm/ (Sodium Chloride) 50 mls @ 100 mls/hr IV ONETIME ONE Stop: 10/17/18 22:44 Last Admin: 10/17/18 22:31 Dose: 100 mls/hr Sodium Chloride (Normal Saline) 1,000 mls @ 1,000 mls/hr IV ASDIRECTED [facility] Last Admin: 10/17/18 22:31 Dose: 1,000 mls/hr Ceftriaxone Sodium 1 gm/ (Sodium Chloride) 50 mls @ 100 mls/hr IV Q24H [facility] Last Admin: 10/18/18 20:35 Dose: 100 mls/hr Sodium Chloride (Normal Saline) 1,000 mls @ 125 mls/hr IV ASDIRECTED [facility] Last Admin: 10/18/18 08:28 Dose: 125 mls/hr Sodium Chloride (Normal Saline) 1,000 mls @ 50 mls/hr IV ASDIRECTED [facility] Last Admin: 10/20/18 05:51 Dose: 50 mls/hr Piperacillin Sod/Tazobactam (Sod 3.375 gm/ Sodium Chloride) 50 mls @ 100 mls/ hr IV Q6H [facility] Last Admin: 10/20/18 01:57 Dose: 100 mls/hr Methylprednisolone Sodium Succinate (Solu-Medrol) 125 mg IVPUSH ONETIME ONE Stop: 10/19/18 16:11 Last Admin: 10/19/18 16:39 Dose: 125 mg Morphine Sulfate (Morphine) 2 mg IVPUSH Q2H PRN PRN Reason: Pain (severe 7-10) Nicotine (Habitrol) 21 mg TRDERM ONETIME ONE Stop: 10/18/18 00:31 Last Admin: 10/18/18 00:36 Dose: 21 mg Potassium Chloride (Klor-Con M20) 40 meq PO ONETIME ONE Stop: 10/18/18 09:01 Last Admin: 10/18/18 09:31 Dose: 40 meq Propofol (Diprivan 20 Ml) 200 mg IV ONETIME ONE Stop: 10/19/18 15:31 Last Admin: 10/19/18 15:30 Dose: 200 mg Propofol (Diprivan 20 Ml) 200 mg IV .STK-MED ONE Stop: 10/19/18 15:31 - Exam Quality Assessment: Supplemental Oxygen (Ventilator), Urine Catheter, DVT Prophylaxis General: Sedated, Lethargic Lungs: Decreased Breath Sounds, Rhonchi, Wheezing. No: Crackles, Rales Cardiovascular: Regular Rate, Regular Rhythm, No Murmurs GI/Abdominal Exam: Soft, Non-Tender, No Organomegaly, No Distention Extremities: Non-Tender, No Pedal Edema - Problem List Review Problem List Initiated/Reviewed/Updated: Yes - My Orders Last 24 Hours: My Active Orders 10/19/18 15:54 Patient Status [ADT] Routine Cardiac Monitoring [RC] Q6H 10/19/18 15:58 Mechanical Ventilation [RT Ventilator, Adult] [RC] Q2H Urinary Catheter Assessment [RC] Q12H 10/19/18 16:00 Insert Kohli Catheter [Insert Urinary Catheter] [OM.PC] Q24H RASS Sedation Scale [RC] ASDIRECTED Heparin Sodium 5,000 units Sodium Chloride 0.9% [Normal Saline] 500 ml IV ASDIRECTED Propofol [Diprivan 100 ML] 100 ml IV TITRATE Desired Level of Sedation (RASS) [AST] Click to Edit 10/19/18 17:04 EKG Documentation Completion [RC] ASDIRECTED EKG 12 Lead [EK] Stat 10/19/18 18:09 CULTURE RESPIRATORY + SMEAR [RM] Stat Blood Culture x2 Reflex Set [OM.PC] Urgent 10/19/18 18:30 CULTURE BLOOD [BC] Stat CULTURE BLOOD [BC] Stat 10/19/18 22:00 methylPREDNISolone Sod Succ [Solu-MEDROL] 40 mg IVPUSH Q6H 10/20/18 08:00 Piperacillin/Tazobactam/Dext [Zosyn in Dextrose Iso-Osmotic 3.375 GM] 3.375 gm Premix Bag 1 bag IV Q6H 10/20/18 09:00 Magnesium Sulfate/Water [Magnesium Sulfate in Water Premix] 2 gm Premix Bag 1 bag IV Q6H 10/20/18 09:24 BLOOD GAS ARTERIAL [BG] Stat 10/20/18 09:25 Convert IV to Saline Lock [OM.PC] Routine 10/21/18 05:00 Chest 1V Frontal [CR] DAILY BLOOD GAS ARTERIAL [BG] Timed CBC WITH AUTO DIFF [HEME] Timed COMPREHENSIVE METABOLIC PN,CMP [CHEM] Timed MAGNESIUM [CHEM] Timed 10/22/18 05:00 Chest 1V Frontal [CR] DAILY - Plan Plan:: ASSESSMENT AND PLAN Acute on chronic hypoxic respiratory failure-likely secondary to right lung pneumonia and underlying COPD with exacerbation. Improved through the night on current level of ventilatory support. She has bilateral expiratory wheezes on exam today and I would favor 1 additional day and mechanical ventilation. She is extremely anxious and unable to tolerate even a simple mask, noninvasive positive pressure ventilation is not an option for ongoing management following extubation. Chest x-ray obtained after intubation yesterday suggested right lung infiltrate, this appears to have cleared on today's x-ray -Mechanical ventilation -CT scan of the chest with PE protocol -Follow up chest x-ray in a.m. -IV sedation Right lung pneumonia-I suspect that this was present on admission, although she denied significant respiratory symptoms. Chest x-ray this morning shows clearing of previous area of possible infiltrate. -CT of chest as above -Repeat blood cultures and sputum culture pending -IV Zosyn and levofloxacin Complicated urinary tract infection with left pyelonephritis - Ms. Gann has history of cervical cancer with mets to bladder and pelvis. She had radiation to the area. Now has chronic urinary leakage and recurrent urinary tract infections. -Discontinue ceftriaxone, current antibiotic therapy should provide adequate coverage for UTI -IV fluids NS TKO -I&O -urine and blood cultures pending Hypertension and CAD -monitor vital signs every 4 hours -continue home medication Addiction to Drug - Ms. 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 She is from the [place], [place]. area. -IV Ativan 1 mg every 4 hours as needed for agitation -sleep aid Tobacco use - staff at [facility] report she smokes as much as possible, 2 packs per day. Discussed with Ms. Gann no smoking in hospital. -Nicotine patch 21 mg topical. MAINTENANCE ISSUES -DVT prophylaxis; Lovonex 30 mg subcut -GI prophylaxis; IV Protonix 20 mg daily -Kohli catheter; not indicated -Nutrition; regular diet -Nicotine dependence; nicotine patch CODE STATUS-FULL ADMISSION STATUS-patient will be admitted to inpatient status, expect at least a 2 night hospital stay for evaluation and management of problems as outlined above. At the time of this admission I do not reasonably expected evaluation and management of this problem will require more than a 96 hour hospital stay. DISPOSITION-[facility] stay. Primary Care Provider: SERENA Ludwig. , no local provider noted Hospitalist: Dr. Thanh M.D.
[2018-10-20] MEDS: Carvedilol 6.25 MG Tab PO SCH (09:46)
[2018-10-20] MEDS: Losartan 50 MG Tab PO SCH (09:47)
[2018-10-20] MEDS: DULoxetine 30 MG Cap PO SCH (09:47)
[2018-10-20] MEDS: amLODIPine 10 MG Tab PO SCH (09:48)
[2018-10-20] MEDS: Nicotine 21 MG/24 Hr Patch TRDERM SCH (09:54)
[2018-10-20] MEDS: Magnesium Sulfate/Water 2 GM in Premix Bag 1 BAG IV SCH ×3 (09:54→21:25)
[2018-10-20] MEDS ORDERED: Sodium Chloride 0.9% 10 ML Syringe FLUSH ONE (11:38)
[2018-10-20] MEDS ORDERED: Sodium Chloride 0.9% 80 ML IV ONE (11:38)
[2018-10-20] MEDS: LORazepam 2 MG/ML SDV IV PRN ×2 (11:45→21:23)
[2018-10-20] MEDS ORDERED: Iopamidol 755 Mg/ML 100 ML Bottle IV SCH (11:45)
--- NOTE | 2018-10-20 13:07 | CRLCT ---
INDICATION: Hypoxia. TECHNIQUE: Multiple axial images were obtained from the apices to the diaphragm per the pulmonary artery embolism protocol after administration of 80 mL of Isovue-370 intravenously. Sagittal and coronal re-formatted images were obtained. COMPARISON: Chest x-ray done earlier same day new. FINDINGS: There are small bilateral effusions. There is consolidation in the dependent portion of both lung bases. There are airspace opacities in the right upper lobe posteriorly along the major fissure as well as in the right apex. There are increased interstitial markings in the lungs. There is an endotracheal tube with tip above the calvin. There is no axillary, mediastinal or hilar adenopathy. There are atherosclerotic calcifications. There is no pulmonary artery embolism seen. There are atherosclerotic calcifications in the aorta. IMPRESSION: No pulmonary artery embolism Small bilateral effusions with consolidation in the dependent portion of the lung bases. Increased interstitial markings in the lungs. This could be secondary to a congestive heart failure. Airspace opacities in the right upper lobe posteriorly and in the right apex which could secondary to a pneumonia. Dictated by Domingo Milan MD @ 10/20/2018 1:05:54 PM Please note that all CT scans at this facility use dose modulation, iterative reconstruction, and/or weight-based dosing when appropriate to reduce radiation dose to as low as reasonably achievable. Dictated by: Domingo Milan MD @ 10/20/2018 13:06:01 (Electronically Signed)
[2018-10-20] MEDS ORDERED: Furosemide 40 MG/4 ML VIAL IVPUSH ONE (13:45)
[2018-10-20] MEDS: Enoxaparin 30 MG/0.3 ML Syringe SUBCUT SCH (21:29)
[2018-10-21] MEDS: Piperacillin/Tazobactam/Dext 3.375 GM in Premix Bag 1 BAG IV SCH ×4 (02:09→20:37)
[2018-10-21] MEDS: methylPREDNISolone Sodium Succinate 40 MG/1 ML SDV IVPUSH SCH ×4 (04:56→21:51)
[2018-10-21] MEDS ORDERED: Sodium Chloride 0.9% 500 ML IV ONE (05:18)
--- NOTE | 2018-10-21 05:22 | CRLCR ---
INDICATION: Respiratory failure, pneumonia TECHNIQUE: Chest radiograph 1 view COMPARISON: 10/20/2018 FINDINGS: Mediastinum: The mediastinum is normal in appearance. The heart silhouette is normal in size and morphology. The endotracheal tube tip is positioned 5.7 cm from the calvin. Lung: Mild left basilar atelectasis with small left pleural effusion noted. No pneumothorax is identified. IMPRESSION: 1. Mild left basilar atelectasis with small left pleural effusion noted. Dictated by Jason Floyd MD @ 10/21/2018 5:22:01 AM Dictated by: Jason Floyd MD @ 10/21/2018 05:22:05 (Electronically Signed)
[2018-10-21] MEDS: Albuterol/Ipratropium 3.0-0.5 MG/3 ML Neb Soln NEB SCH ×4 (07:37→20:43)
[2018-10-21] MEDS ORDERED: Potassium Chloride Riders 40 MEQ in Premix Bag 1 BAG IV ONE (08:17)
[2018-10-21] MEDS: Nicotine 21 MG/24 Hr Patch TRDERM SCH (08:27)
[2018-10-21] MEDS: Potassium Chloride 20 MEQ, Lidocaine 1% 2 ML in Sodium Chloride 0.9% 100 ML IV SCH ×2 (08:54→11:43)
--- NOTE | 2018-10-21 09:44 | PCM.PN ---
- General Info Date of Service: 10/21/18 Subjective Update: Ms. Gann has been stable since yesterday and tolerating current level of ventilatory support. She is currently undergoing a spontaneous breathing trial, if past she will be extubated later this morning. Vital signs have been stable and she has remained afebrile. Currently unable to provide significant history concerning symptoms or review of systems because of intubation. - Patient Data Vitals - Most Recent: Last Vital Signs Temp 96.2 F 10/21/18 08:00 Pulse 80 10/21/18 09:00 Resp 18 10/21/18 09:00 BP 166/66 H 10/21/18 09:00 Pulse Ox 100 10/21/18 09:00 Weight - Most Recent: 103 lb 12.804 oz I&O - Last 24 Hours: Intake & Output 10/20/18 10/21/18 10/21/18 22:59 06:59 14:59 Intake Total 744 647 Output Total 1100 1300 170 Balance -526 -321 -920 Lab Results Last 24 Hours: Laboratory Results - last 24 hr 10/20/18 10/20/18 10/21/18 Range/Units 05:00 09:24 05:00 WBC (4.5-11.0) K/uL RBC (3.30-5.50) M/uL Hgb (12.0-15.0) g/dL Hct (36.0-48.0) % MCV (80-98) fL MCH (27-31) pg MCHC (32-36) % Plt Count (150-400) K/uL Neut % (Auto) (36-66) % Lymph % (Auto) (24-44) % [place] % (Auto) (2-6) % Eos % (Auto) (2-4) % Baso % (Auto) (0-1) % Puncture Site Rt radial L brachial ABG pH 7.343 L 7.336 L (7.350-7.450) ABG pCO2 30.5 L 33.5 L (35.0-42.0) mmHg ABG pO2 83.7 137.0 H (75.0-100.0) mmHg ABG HCO3 16.1 L 17.4 L (22.0-26.0) mmol/L ABG Total CO2 14.9 L 16.1 L (21.0-25.0) mmol/L ABG O2 Saturation 95.9 98.2 H (95.0-98.0) % ABG O2 Content 15.5 15.7 (15.0-23.0) %vol ABG Base Excess -8.1 -7.1 mm/L ABG Hemoglobin 11.5 L 11.3 L (12.0-16.0) g/dL ABG Oxyhemoglobin 94.8 97.1 % ABG Carboxyhemoglobin 0.2 0.0 (0.0-1.6) % ABG Methemoglobin 0.9 1.1 % Asim Test Pass O2 Delivery Device Ventilator Ventilator Oxygen Flow Rate L Sodium (140-148) mmol/L Potassium (3.6-5.2) mmol/L Chloride (100-108) mmol/L Carbon Dioxide (21-32) mmol/L Anion Gap (5.0-14.0) mmol/L BUN (7-18) mg/dL Creatinine (0.6-1.0) mg/dL Est Cr Clr Drug Dosing mL/min Estimated GFR (MDRD) (>60) Glucose (74-106) mg/dL Calcium (8.5-10.1) mg/dL Magnesium (1.8-2.4) mg/dL Total Bilirubin (0.2-1.0) mg/dL AST (15-37) U/L ALT (12-78) U/L Alkaline Phosphatase (46-116) U/L Total Protein (6.4-8.2) g/dL Albumin (3.4-5.0) g/dL Globulin (2.3-3.5) g/dL Albumin/Globulin Ratio (1.2-2.2) HIV-1 Ab Rapid Screen Non-reactive (NON-REACT.) 10/21/18 10/21/18 Range/Units 05:08 05:08 WBC 9.3 (4.5-11.0) K/uL RBC 3.54 (3.30-5.50) M/uL Hgb 11.1 L (12.0-15.0) g/dL Hct 32.9 L (36.0-48.0) % MCV 93 (80-98) fL MCH 31 (27-31) pg MCHC 34 (32-36) % Plt Count 261 (150-400) K/uL Neut % (Auto) 85 H (36-66) % Lymph % (Auto) 8 L (24-44) % [place] % (Auto) 7 H (2-6) % Eos % (Auto) 0 L (2-4) % Baso % (Auto) 0 (0-1) % Puncture Site ABG pH (7.350-7.450) ABG pCO2 (35.0-42.0) mmHg ABG pO2 (75.0-100.0) mmHg ABG HCO3 (22.0-26.0) mmol/L ABG Total CO2 (21.0-25.0) mmol/L ABG O2 Saturation (95.0-98.0) % ABG O2 Content (15.0-23.0) %vol ABG Base Excess mm/L ABG Hemoglobin (12.0-16.0) g/dL ABG Oxyhemoglobin % ABG Carboxyhemoglobin (0.0-1.6) % ABG Methemoglobin % Asim Test O2 Delivery Device Oxygen Flow Rate L Sodium 141 (140-148) mmol/L Potassium 3.2 L (3.6-5.2) mmol/L Chloride 109 H (100-108) mmol/L Carbon Dioxide 18 L (21-32) mmol/L Anion Gap 17.2 H (5.0-14.0) mmol/L BUN 36 H (7-18) mg/dL Creatinine 1.2 H (0.6-1.0) mg/dL Est Cr Clr Drug Dosing 36.13 mL/min Estimated GFR (MDRD) 46 L (>60) Glucose 222 H (74-106) mg/dL Calcium 9.0 (8.5-10.1) mg/dL Magnesium 3.4 H D (1.8-2.4) mg/dL Total Bilirubin 0.3 (0.2-1.0) mg/dL AST 29 (15-37) U/L ALT 37 (12-78) U/L Alkaline Phosphatase 98 (46-116) U/L Total Protein 6.2 L (6.4-8.2) g/dL Albumin 1.9 L (3.4-5.0) g/dL Globulin 4.3 H (2.3-3.5) g/dL Albumin/Globulin Ratio 0.4 L (1.2-2.2) HIV-1 Ab Rapid Screen (NON-REACT.) Daniel Results Last 24 Hours: Microbiology 10/19/18 18:09 Gram Stain - Final Trachea Respiratory Culture - Preliminary NORMAL RESPIRATORY ARVIND 1 DAY 10/17/18 22:25 Aerobic Blood Culture - Preliminary Blood - Arm, Right NO GROWTH AFTER 3 DAYS Anaerobic Blood Culture - Preliminary NO GROWTH AFTER 3 DAYS 10/17/18 22:30 Aerobic Blood Culture - Preliminary Blood - Venous - Lab Draw NO GROWTH AFTER 3 DAYS Anaerobic Blood Culture - Preliminary NO GROWTH AFTER 3 DAYS 10/19/18 18:30 Aerobic Blood Culture - Preliminary Blood - Arm, Right NO GROWTH AFTER 1 DAY Anaerobic Blood Culture - Preliminary NO GROWTH AFTER 1 DAY 10/19/18 18:30 Aerobic Blood Culture - Preliminary Blood - Arm, Right NO GROWTH AFTER 1 DAY Anaerobic Blood Culture - Preliminary NO GROWTH AFTER 1 DAY Med Orders - Current: Current Medications Acetaminophen (Tylenol) 650 mg PO Q4H PRN PRN Reason: Pain (Mild 1-3)/fever Last Admin: 10/19/18 08:43 Dose: 650 mg Albuterol (Proventil Neb Soln) 2.5 mg NEB Q4H PRN PRN Reason: Shortness Of Breath/wheezing Albuterol/Ipratropium (Duoneb 3.0-0.5 Mg/3 Ml) 3 ml NEB QIDRT [facility] Last Admin: 10/21/18 07:37 Dose: 3 ml Amlodipine Besylate (Norvasc) 10 mg PO DAILY [facility] Last Admin: 10/20/18 09:48 Dose: Not Given Carvedilol (Coreg) 6.25 mg PO DAILY [facility] Last Admin: 10/20/18 09:46 Dose: Not Given Docusate Sodium (Colace) 100 mg PO BID PRN PRN Reason: Constipation Duloxetine HCl (Cymbalta) 60 mg PO DAILY [facility] Last Admin: 10/20/18 09:47 Dose: Not Given Enoxaparin Sodium (Lovenox) 30 mg SUBCUT Q24H [facility] Last Admin: 10/20/18 21:29 Dose: 30 mg Furosemide (Lasix) 20 mg IVPUSH NOW ONE Stop: 10/21/18 09:36 Heparin Sodium (Porcine) 5,000 (units/ Sodium Chloride) 501 mls @ 5 mls/hr IV ASDIRECTED [facility] Last Admin: 10/19/18 16:44 Dose: 5 mls/hr Propofol (Diprivan 100 Ml) 100 mls @ 2.825 mls/hr IV TITRATE [facility]; Protocol Last Titration: 10/21/18 06:24 Dose: 60 mcg/kg/min, 16.95 mls/hr Piperacillin/Tazobactam/ (Dextrose 3.375 gm/ Premix) 50 mls @ 100 mls/hr IV Q6H [facility] Last Admin: 10/21/18 08:25 Dose: 100 mls/hr Potassium Chloride 20 meq/Lidocaine HCl 2 ml/ Sodium Chloride 112 mls @ 56 mls/ hr IV Q2H [facility] Stop: 10/21/18 13:29 Last Admin: 10/21/18 08:54 Dose: 56 mls/hr Lorazepam (Ativan) 1 mg IV Q4H PRN PRN Reason: Agitation Last Admin: 10/20/18 21:23 Dose: 1 mg Losartan Potassium (Cozaar) 50 mg PO DAILY [facility] Last Admin: 10/20/18 09:47 Dose: Not Given Methylprednisolone Sodium Succinate (Solu-Medrol) 40 mg IVPUSH Q6H [facility] Last Admin: 10/21/18 04:56 Dose: 40 mg Nicotine (Habitrol) 21 mg TRDERM DAILY [facility] Last Admin: 10/21/18 08:27 Dose: 21 mg Ondansetron HCl (Zofran) 4 mg IV Q4H PRN PRN Reason: Nausea/Vomiting Oxycodone HCl (Oxycodone) 5 mg PO Q4H PRN PRN Reason: Pain (moderate 4-6) Last Admin: 10/19/18 10:15 Dose: 5 mg Potassium Chloride (Klor-Con M20) 40 meq PO ONETIME ONE Stop: 10/21/18 13:01 Temazepam (Restoril) 15 mg PO BEDTIME PRN PRN Reason: Sleep Discontinued Medications Amlodipine Besylate (Norvasc) 10 mg PO DAILY [facility] Enoxaparin Sodium (Lovenox) 30 mg SUBCUT DAILY [facility] Enoxaparin Sodium (Lovenox) 30 mg SUBCUT ONETIME ONE Stop: 10/18/18 00:31 Last Admin: 10/18/18 00:36 Dose: 30 mg Furosemide (Lasix) 40 mg IVPUSH ONETIME ONE Stop: 10/19/18 15:16 Last Admin: 10/19/18 15:15 Dose: 40 mg Furosemide (Lasix) 40 mg IVPUSH NOW ONE Stop: 10/20/18 13:46 Last Admin: 10/20/18 14:00 Dose: 40 mg Ceftriaxone Sodium 2 gm/ (Sodium Chloride) 50 mls @ 100 mls/hr IV ONETIME ONE Stop: 10/17/18 22:44 Last Admin: 10/17/18 22:31 Dose: 100 mls/hr Sodium Chloride (Normal Saline) 1,000 mls @ 1,000 mls/hr IV ASDIRECTED [facility] Last Admin: 10/17/18 22:31 Dose: 1,000 mls/hr Ceftriaxone Sodium 1 gm/ (Sodium Chloride) 50 mls @ 100 mls/hr IV Q24H [facility] Last Admin: 10/18/18 20:35 Dose: 100 mls/hr Sodium Chloride (Normal Saline) 1,000 mls @ 125 mls/hr IV ASDIRECTED [facility] Last Admin: 10/18/18 08:28 Dose: 125 mls/hr Sodium Chloride (Normal Saline) 1,000 mls @ 50 mls/hr IV ASDIRECTED [facility] Last Admin: 10/20/18 05:51 Dose: 50 mls/hr Piperacillin Sod/Tazobactam (Sod 3.375 gm/ Sodium Chloride) 50 mls @ 100 mls/ hr IV Q6H [facility] Last Admin: 10/20/18 01:57 Dose: 100 mls/hr Magnesium Sulfate 2 gm/ Premix 50 mls @ 25 mls/hr IV Q6H [facility] Stop: 10/20/18 22:59 Last Admin: 10/20/18 21:25 Dose: 25 mls/hr Sodium Chloride (Normal Saline) 80 mls @ 4 mls/sec IV ONETIME ONE Stop: 10/20/18 11:39 Last Admin: 10/20/18 12:15 Dose: 4 mls/sec Sodium Chloride (Normal Saline) 500 mls @ 0 mls/hr IV .BOLUS ONE Stop: 10/21/18 05:19 Last Admin: 10/21/18 05:30 Dose: 10 mls/hr Iopamidol (Isovue-370 (76%)) 80 ml IV . DIRECTED [facility] Stop: 10/20/18 16:00 Last Admin: 10/20/18 12:15 Dose: 80 ml Methylprednisolone Sodium Succinate (Solu-Medrol) 125 mg IVPUSH ONETIME ONE Stop: 10/19/18 16:11 Last Admin: 10/19/18 16:39 Dose: 125 mg Morphine Sulfate (Morphine) 2 mg IVPUSH Q2H PRN PRN Reason: Pain (severe 7-10) Nicotine (Habitrol) 21 mg TRDERM ONETIME ONE Stop: 10/18/18 00:31 Last Admin: 10/18/18 00:36 Dose: 21 mg Potassium Chloride (Klor-Con M20) 40 meq PO ONETIME ONE Stop: 10/18/18 09:01 Last Admin: 10/18/18 09:31 Dose: 40 meq Propofol (Diprivan 20 Ml) 200 mg IV ONETIME ONE Stop: 10/19/18 15:31 Last Admin: 10/19/18 15:30 Dose: 200 mg Propofol (Diprivan 20 Ml) 200 mg IV .STK-MED ONE Stop: 10/19/18 15:31 Sodium Chloride (Saline Flush) 10 ml FLUSH ONETIME ONE Stop: 10/20/18 11:39 Last Admin: 10/20/18 12:15 Dose: 10 ml - Exam Quality Assessment: Supplemental Oxygen, Urine Catheter, DVT Prophylaxis General: Alert, Oriented, Cooperative Lungs: Clear to Auscultation, Normal Respiratory Effort Cardiovascular: Regular Rate, Regular Rhythm, No Murmurs GI/Abdominal Exam: Soft, Non-Tender, No Organomegaly, No Distention Extremities: Non-Tender, No Pedal Edema - Problem List Review Problem List Initiated/Reviewed/Updated: Yes - My Orders Last 24 Hours: My Active Orders 10/20/18 09:25 Convert IV to Saline Lock [OM.PC] Routine 10/21/18 09:30 Potassium Chloride 20 meq Lidocaine 1% [Xylocaine 1%] 2 ml Sodium Chloride 0.9 % [Normal Saline] 100 ml IV Q2H 10/21/18 09:35 Furosemide [Lasix] 20 mg IVPUSH NOW ONE 10/21/18 13:00 Potassium Chloride [Klor-Con M20] 40 meq PO ONETIME ONE 10/22/18 05:00 Chest 1V Frontal [CR] DAILY BASIC METABOLIC PANEL,BMP [CHEM] Timed - Plan Plan:: ASSESSMENT AND PLAN Acute on chronic hypoxic respiratory failure-likely secondary to right lung pneumonia and underlying COPD with exacerbation. Stable since yesterday and currently doing well with spontaneous breathing trial. CT scan of the chest did show evidence of infiltrates consistent with underlying pneumonia, there was no evidence of pulmonary embolism. -Mechanical ventilation, anticipate extubation later this morning -Follow up chest x-ray in a.m. -IV sedation Right lung pneumonia-I suspect that this was present on admission, although she denied significant respiratory symptoms. CT scan obtained yesterday shows evidence of pulmonary infiltrates consistent with infection -Repeat blood cultures and sputum culture pending -IV Zosyn and levofloxacin Complicated urinary tract infection with left pyelonephritis - Ms. Gann has history of cervical cancer with mets to bladder and pelvis. She had radiation to the area. Now has chronic urinary leakage and recurrent urinary tract infections. -current antibiotic therapy should provide adequate coverage for UTI -IV fluids NS TKO -I&O -urine and blood cultures pending -Outpatient urology consult to evaluate stricturing in the left ureter Hypertension and CAD -monitor vital signs every 4 hours -continue home medication Addiction to Drug - Ms. 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 She is from the [place], [place]. area. -IV Ativan 1 mg every 4 hours as needed for agitation -sleep aid Tobacco use - staff at [facility] report she smokes as much as possible, 2 packs per day. Discussed with Ms. Gann no smoking in hospital. -Nicotine patch 21 mg topical. MAINTENANCE ISSUES -DVT prophylaxis; Lovonex 30 mg subcut -GI prophylaxis; IV Protonix 20 mg daily -Kohli catheter; not indicated -Nutrition; regular diet -Nicotine dependence; nicotine patch CODE STATUS-FULL ADMISSION STATUS-patient will be admitted to inpatient status, expect at least a 2 night hospital stay for evaluation and management of problems as outlined above. At the time of this admission I do not reasonably expected evaluation and management of this problem will require more than a 96 hour hospital stay. DISPOSITION-[facility]. Primary Care Provider: [facility]. , no local provider noted Hospitalist: Dr. Thanh M.D.
[2018-10-21] MEDS ORDERED: Furosemide 20 MG/2 ML VIAL IV ONE (09:45)
[2018-10-21] MEDS: DULoxetine 30 MG Cap PO SCH (10:43)
[2018-10-21] MEDS: amLODIPine 10 MG Tab PO SCH (10:44)
[2018-10-21] MEDS: Losartan 50 MG Tab PO SCH (10:45)
[2018-10-21] MEDS: Carvedilol 6.25 MG Tab PO SCH (10:45)
[2018-10-21] MEDS: LORazepam 2 MG/ML SDV IV PRN ×2 (10:53→20:44)
[2018-10-21] MEDS ORDERED: Levofloxacin/Dextrose 5%-Water 750 MG in Premix Bag 1 BAG IV SCH (12:30)
[2018-10-21] MEDS ORDERED: Potassium Chloride 20 MEQ Tab.ER PO ONE (13:00)
[2018-10-21] MEDS: oxyCODONE 5 MG Tab PO PRN (20:43)
[2018-10-21] MEDS: Enoxaparin 40 MG/0.4 ML Syringe SUBCUT SCH (21:51)
[2018-10-22] MEDS: LORazepam 2 MG/ML SDV IV PRN (01:06)
[2018-10-22] MEDS: oxyCODONE 5 MG Tab PO PRN ×2 (01:06→09:40)
[2018-10-22] MEDS: Piperacillin/Tazobactam/Dext 3.375 GM in Premix Bag 1 BAG IV SCH ×2 (01:33→08:40)
[2018-10-22] MEDS: methylPREDNISolone Sodium Succinate 40 MG/1 ML SDV IVPUSH SCH (03:29)
[2018-10-22] MEDS: Albuterol/Ipratropium 3.0-0.5 MG/3 ML Neb Soln NEB SCH ×4 (06:59→21:42)
--- NOTE | 2018-10-22 09:33 | PCM.PN ---
- General Info Date of Service: 10/22/18 Subjective Update: There were no acute events overnight. Patient did require supplemental oxygen through the afternoon but is off as of this morning. She thinks her shortness of breath and strength have improved since yesterday. She did not have any fevers overnight. She has mild left flank pain. No complaints of chest pain or pleuritic chest pain. Tolerating antibiotics. Cultures negative. Functional Status: Reports: Pain Controlled, Tolerating Diet - Review of Systems General: Reports: Weakness. Denies: Fever Genitourinary: Reports: Flank Pain (left) - Patient Data Vitals - Most Recent: Last Vital Signs Temp 36.1 C 10/22/18 08:00 Pulse 67 10/22/18 08:00 Resp 12 10/22/18 08:00 BP 147/58 H 10/22/18 06:00 Pulse Ox 99 10/22/18 08:00 Weight - Most Recent: 47.083 kg I&O - Last 24 Hours: Intake & Output 10/21/18 10/22/18 10/22/18 22:59 06:59 14:59 Intake Total 1082 Output Total 1700 350 Balance 1082 -1700 -350 Lab Results Last 24 Hours: Laboratory Results - last 24 hr 10/22/18 Range/Units 05:59 Sodium 140 (140-148) mmol/L Potassium 4.0 (3.6-5.2) mmol/L Chloride 106 (100-108) mmol/L Carbon Dioxide 22 (21-32) mmol/L Anion Gap 11.8 (5.0-14.0) mmol/L BUN 43 H (7-18) mg/dL Creatinine 1.2 H (0.6-1.0) mg/dL Est Cr Clr Drug Dosing 36.13 mL/min Estimated GFR (MDRD) 46 L (>60) Glucose 326 H (74-106) mg/dL Calcium 8.7 (8.5-10.1) mg/dL Daniel Results Last 24 Hours: Microbiology 10/19/18 18:09 Gram Stain - Final Trachea Respiratory Culture - Final NORMAL RESPIRATORY ARVIND 2 DAYS 10/17/18 22:30 Aerobic Blood Culture - Preliminary Blood - Venous - Lab Draw NO GROWTH AFTER 4 DAYS Anaerobic Blood Culture - Preliminary NO GROWTH AFTER 4 DAYS 10/17/18 22:25 Aerobic Blood Culture - Preliminary Blood - Arm, Right NO GROWTH AFTER 4 DAYS Anaerobic Blood Culture - Preliminary NO GROWTH AFTER 4 DAYS 10/19/18 18:30 Aerobic Blood Culture - Preliminary Blood - Arm, Right NO GROWTH AFTER 2 DAYS Anaerobic Blood Culture - Preliminary NO GROWTH AFTER 2 DAYS 10/19/18 18:30 Aerobic Blood Culture - Preliminary Blood - Arm, Right NO GROWTH AFTER 2 DAYS Anaerobic Blood Culture - Preliminary NO GROWTH AFTER 2 DAYS Med Orders - Current: Current Medications Acetaminophen (Tylenol) 650 mg PO Q4H PRN PRN Reason: Pain (Mild 1-3)/fever Last Admin: 10/19/18 08:43 Dose: 650 mg Albuterol (Proventil Neb Soln) 2.5 mg NEB Q4H PRN PRN Reason: Shortness Of Breath/wheezing Albuterol/Ipratropium (Duoneb 3.0-0.5 Mg/3 Ml) 3 ml NEB QIDRT [facility] Last Admin: 10/22/18 06:59 Dose: 3 ml Amlodipine Besylate (Norvasc) 10 mg PO DAILY [facility] Last Admin: 10/21/18 10:44 Dose: 10 mg Carvedilol (Coreg) 6.25 mg PO DAILY [facility] Last Admin: 10/21/18 10:45 Dose: 6.25 mg Docusate Sodium (Colace) 100 mg PO BID PRN PRN Reason: Constipation Duloxetine HCl (Cymbalta) 60 mg PO DAILY [facility] Last Admin: 10/21/18 10:43 Dose: 60 mg Enoxaparin Sodium (Lovenox) 40 mg SUBCUT BEDTIME [facility] Last Admin: 10/21/18 21:51 Dose: 40 mg Lorazepam (Ativan) 1 mg IV Q4H PRN PRN Reason: Agitation Last Admin: 10/22/18 01:06 Dose: 1 mg Losartan Potassium (Cozaar) 50 mg PO DAILY [facility] Last Admin: 10/21/18 10:45 Dose: 50 mg Nicotine (Habitrol) 21 mg TRDERM DAILY [facility] Last Admin: 10/21/18 08:27 Dose: 21 mg Ondansetron HCl (Zofran) 4 mg IV Q4H PRN PRN Reason: Nausea/Vomiting Oxycodone HCl (Oxycodone) 5 mg PO Q4H PRN PRN Reason: Pain (moderate 4-6) Last Admin: 10/22/18 01:06 Dose: 5 mg Temazepam (Restoril) 15 mg PO BEDTIME PRN PRN Reason: Sleep Discontinued Medications Amlodipine Besylate (Norvasc) 10 mg PO DAILY [facility] Enoxaparin Sodium (Lovenox) 30 mg SUBCUT DAILY [facility] Enoxaparin Sodium (Lovenox) 30 mg SUBCUT ONETIME ONE Stop: 10/18/18 00:31 Last Admin: 10/18/18 00:36 Dose: 30 mg Enoxaparin Sodium (Lovenox) 30 mg SUBCUT Q24H [facility] Last Admin: 10/20/18 21:29 Dose: 30 mg Furosemide (Lasix) 40 mg IVPUSH ONETIME ONE Stop: 10/19/18 15:16 Last Admin: 10/19/18 15:15 Dose: 40 mg Furosemide (Lasix) 40 mg IVPUSH NOW ONE Stop: 10/20/18 13:46 Last Admin: 10/20/18 14:00 Dose: 40 mg Furosemide (Lasix) 20 mg IV ONETIME ONE Stop: 10/21/18 09:46 Last Admin: 10/21/18 10:58 Dose: 20 mg Ceftriaxone Sodium 2 gm/ (Sodium Chloride) 50 mls @ 100 mls/hr IV ONETIME ONE Stop: 10/17/18 22:44 Last Admin: 10/17/18 22:31 Dose: 100 mls/hr Sodium Chloride (Normal Saline) 1,000 mls @ 1,000 mls/hr IV ASDIRECTED [facility] Last Admin: 10/17/18 22:31 Dose: 1,000 mls/hr Ceftriaxone Sodium 1 gm/ (Sodium Chloride) 50 mls @ 100 mls/hr IV Q24H [facility] Last Admin: 10/18/18 20:35 Dose: 100 mls/hr Sodium Chloride (Normal Saline) 1,000 mls @ 125 mls/hr IV ASDIRECTED [facility] Last Admin: 10/18/18 08:28 Dose: 125 mls/hr Sodium Chloride (Normal Saline) 1,000 mls @ 50 mls/hr IV ASDIRECTED [facility] Last Admin: 10/20/18 05:51 Dose: 50 mls/hr Heparin Sodium (Porcine) 5,000 (units/ Sodium Chloride) 501 mls @ 5 mls/hr IV ASDIRECTED [facility] Last Admin: 10/19/18 16:44 Dose: 5 mls/hr Propofol (Diprivan 100 Ml) 100 mls @ 2.825 mls/hr IV TITRATE [facility]; Protocol Last Titration: 10/21/18 06:24 Dose: 60 mcg/kg/min, 16.95 mls/hr Piperacillin Sod/Tazobactam (Sod 3.375 gm/ Sodium Chloride) 50 mls @ 100 mls/ hr IV Q6H [facility] Last Admin: 10/20/18 01:57 Dose: 100 mls/hr Piperacillin/Tazobactam/ (Dextrose 3.375 gm/ Premix) 50 mls @ 100 mls/hr IV Q6H [facility] Last Admin: 10/22/18 08:40 Dose: 100 mls/hr Magnesium Sulfate 2 gm/ Premix 50 mls @ 25 mls/hr IV Q6H [facility] Stop: 10/20/18 22:59 Last Admin: 10/20/18 21:25 Dose: 25 mls/hr Sodium Chloride (Normal Saline) 80 mls @ 4 mls/sec IV ONETIME ONE Stop: 10/20/18 11:39 Last Admin: 10/20/18 12:15 Dose: 4 mls/sec Sodium Chloride (Normal Saline) 500 mls @ 0 mls/hr IV .BOLUS ONE Stop: 10/21/18 05:19 Last Admin: 10/21/18 05:30 Dose: 10 mls/hr Potassium Chloride 20 meq/Lidocaine HCl 2 ml/ Sodium Chloride 112 mls @ 56 mls/ hr IV Q2H [facility] Stop: 10/21/18 13:29 Last Admin: 10/21/18 11:43 Dose: 56 mls/hr Levofloxacin/Dextrose 750 mg/ (Premix) 150 mls @ 100 mls/hr IV Q48H [facility] Last Admin: 10/21/18 12:26 Dose: 100 mls/hr Iopamidol (Isovue-370 (76%)) 80 ml IV . DIRECTED [facility] Stop: 10/20/18 16:00 Last Admin: 10/20/18 12:15 Dose: 80 ml Methylprednisolone Sodium Succinate (Solu-Medrol) 125 mg IVPUSH ONETIME ONE Stop: 10/19/18 16:11 Last Admin: 10/19/18 16:39 Dose: 125 mg Methylprednisolone Sodium Succinate (Solu-Medrol) 40 mg IVPUSH Q6H [facility] Last Admin: 10/22/18 03:29 Dose: 40 mg Morphine Sulfate (Morphine) 2 mg IVPUSH Q2H PRN PRN Reason: Pain (severe 7-10) Nicotine (Habitrol) 21 mg TRDERM ONETIME ONE Stop: 10/18/18 00:31 Last Admin: 10/18/18 00:36 Dose: 21 mg Potassium Chloride (Klor-Con M20) 40 meq PO ONETIME ONE Stop: 10/18/18 09:01 Last Admin: 10/18/18 09:31 Dose: 40 meq Potassium Chloride (Klor-Con M20) 40 meq PO ONETIME ONE Stop: 10/21/18 13:01 Last Admin: 10/21/18 12:25 Dose: 40 meq Propofol (Diprivan 20 Ml) 200 mg IV ONETIME ONE Stop: 10/19/18 15:31 Last Admin: 10/19/18 15:30 Dose: 200 mg Propofol (Diprivan 20 Ml) 200 mg IV .STK-MED ONE Stop: 10/19/18 15:31 Sodium Chloride (Saline Flush) 10 ml FLUSH ONETIME ONE Stop: 10/20/18 11:39 Last Admin: 10/20/18 12:15 Dose: 10 ml - Exam Quality Assessment: No: Supplemental Oxygen General: Alert, Oriented, Cooperative, No Acute Distress Lungs: Clear to Auscultation, Normal Respiratory Effort. No: Crackles, Wheezing Cardiovascular: Regular Rate, Regular Rhythm GI/Abdominal Exam: Soft, No Distention, Tender (mild left flank) Extremities: No Pedal Edema. No: Increased Warmth Skin: Warm, Dry Psy/Mental Status: Alert, Normal Affect - Problem List Review Problem List Initiated/Reviewed/Updated: Yes - My Orders Last 24 Hours: My Active Orders 10/22/18 09:29 predniSONE 40 mg PO ONETIME ONE 10/22/18 09:31 Transfer Patient (Change bed) [ADT] Routine 10/22/18 09:32 Discontinue Telemetry Monitoring [Cardiac Monitoring Discontinue] [RC] Click to Edit Remove Kohli Catheter [Urinary Catheter Removal] [RC] Per Unit Routine 10/23/18 08:00 predniSONE 40 mg PO WITHBREAKFAST 10/23/18 12:00 levoFLOXacin [Levaquin] 750 mg PO Q48H - Plan Plan:: ASSESSMENT AND PLAN Acute on chronic hypoxic respiratory failure - likely secondary to right lung pneumonia and underlying COPD with exacerbation. Stable since extubation and is off oxygen as of this morning. -Supplement oxygen if necessary Right lung pneumonia - I suspect that this was present on admission, although she denied significant respiratory symptoms. CT scan did document infiltrate. Cultures negative so far. Clinically improving. -Repeat blood cultures and sputum culture pending -Continue levofloxacin, transition to oral Complicated urinary tract infection with left pyelonephritis - Ms. Gann has history of cervical cancer with mets to bladder and pelvis. She had radiation to the area. Now has chronic urinary leakage and recurrent urinary tract infections. -Continue levofloxacin for total of 10 days of therapy -IV fluids NS TKO -I&O -urine and blood cultures pending -Outpatient urology consult to evaluate stricturing in the left ureter Hypertension and CAD - stable -monitor vital signs every 4 hours -continue home medication Addiction to Drug - Ms. 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 She is from the [place], [place]. area. -sleep aid Tobacco use - staff at [facility] report she smokes as much as possible, 2 packs per day. Discussed with Ms. Gann no smoking in hospital. -Nicotine patch 21 mg topical. MAINTENANCE ISSUES -DVT prophylaxis; Lovonex 30 mg subcut -GI prophylaxis; PPI -Kohli catheter; not indicated -Nutrition; regular diet -Nicotine dependence; nicotine patch DISPOSITION - [facility], hopefully tomorrow if stable overnight Calvin Glover M.D.
[2018-10-22] MEDS: Carvedilol 6.25 MG Tab PO SCH (09:40)
[2018-10-22] MEDS: Losartan 50 MG Tab PO SCH (09:40)
[2018-10-22] MEDS: Nicotine 21 MG/24 Hr Patch TRDERM SCH (09:40)
[2018-10-22] MEDS: DULoxetine 30 MG Cap PO SCH (09:40)
[2018-10-22] MEDS: amLODIPine 10 MG Tab PO SCH (09:41)
[2018-10-22] MEDS ORDERED: predniSONE 20 MG Tab PO ONE (10:00)
[2018-10-22] MEDS: Enoxaparin 40 MG/0.4 ML Syringe SUBCUT SCH (21:42)
[2018-10-23] MEDS: Albuterol/Ipratropium 3.0-0.5 MG/3 ML Neb Soln NEB SCH (07:26)
[2018-10-23] MEDS ORDERED: predniSONE 20 MG Tab PO SCH (08:00)
[2018-10-23] MEDS: amLODIPine 10 MG Tab PO SCH (08:30)
[2018-10-23] MEDS: Losartan 50 MG Tab PO SCH (08:32)
[2018-10-23] MEDS: DULoxetine 30 MG Cap PO SCH (08:33)
[2018-10-23] MEDS: Carvedilol 6.25 MG Tab PO SCH (08:33)
[2018-10-23] MEDS: Nicotine 21 MG/24 Hr Patch TRDERM SCH (08:34)
--- NOTE | 2018-10-23 09:50 | PCM.DCSUM1 ---
Discharge Summary - Hospital Course Brief History: 62-year-old female with history of coronary artery disease, COPD , tobacco dependence and cervical cancer with previous radiation who presented with fever and confusion. She was admitted for management of left-sided pyelonephritis with sepsis and acute kidney injury. Diagnosis: Stroke: No - Discharge Data Discharge Date: 10/23/18 Discharge Disposition: DC/Tfer to Inpt Rehab Fac 62 Condition: Fair - Discharge Diagnosis/Problem(s) (1) Pyelonephritis of left kidney SNOMED Code(s): 70530097 ICD Code: N12 - TUBULO-INTERSTITIAL NEPHRITIS, NOT SPCF ACUTE OR CHRONIC Status: Acute (2) Sepsis SNOMED Code(s): 90828307 ICD Code: A41.9 - SEPSIS, UNSPECIFIED ORGANISM Status: Acute Qualifiers: Sepsis type: sepsis due to unspecified organism Qualified Code(s): A41.9 - Sepsis, unspecified organism (3) Bilateral pneumonia SNOMED Code(s): 208223688 ICD Code: J18.9 - PNEUMONIA, UNSPECIFIED ORGANISM Status: Acute Qualifiers: Pneumonia type: due to unspecified organism Lung location: unspecified part of lung Qualified Code(s): J18.9 - Pneumonia, unspecified organism (4) Acute respiratory failure with hypoxia SNOMED Code(s): 55254529, 931446564 ICD Code: J96.01 - ACUTE RESPIRATORY FAILURE WITH HYPOXIA Status: Acute (5) Acute kidney injury SNOMED Code(s): 92163458, 60104581 ICD Code: N17.9 - ACUTE KIDNEY FAILURE, UNSPECIFIED Status: Acute (6) Tobacco use disorder, severe, dependence SNOMED Code(s): 28702107 ICD Code: F17.200 - NICOTINE DEPENDENCE, UNSPECIFIED, UNCOMPLICATED Status : Chronic Priority: High - Patient Summary/Data Consults: Consultations 10/22/18 09:52 PT Evaluation and Treatment [CONS] Routine Please Evaluate and Treat. PT Reason for Consult: Strengthening This query below is only for informational purposes and is not editable. Admission Diagnosis/Problem: Urinary tract infection Hospital Course: Eunice presented to the emergency room from [facility] with fever and increasing confusion. She had recently been diagnosed with a urinary tract infection and started on ciprofloxacin. Workup in the emergency room was suggestive of sepsis with tachycardia and confusion. She had left flank pain and pyelonephritis was suspected. She had significant leukocytosis at 19,000. She received IV fluid resuscitation and was admitted to the hospital for further management after cultures were obtained and broad-spectrum antibiotics initiated. Overnight following admission there were no acute events. Vital signs had stabilized. Same antibiotics and treatment plan was continued. Overnight during the second night of hospitalization she had an episode of respiratory compromise that did resolve without impressive intervention. By the second morning of hospitalization she was stable from respiratory standpoint and doing fairly well. Cultures were all negative at clinically she was doing better. Throughout the morning and into the afternoon she had a steady decline in respiratory status before a rapid response was called. The patient was intubated because of progressive respiratory distress. X-ray at that time suggested a right upper lobe pneumonia. She was started on more broad-spectrum antibiotics than the ceftriaxone. After intubation she remained relatively stable with the use of mechanical ventilation. She was started on steroids and scheduled nebulizers in addition to the broad-spectrum antibiotics. The next day a CT scan of the chest was obtained and revealed bilateral infiltrates with the right upper lobe infiltrate the most impressive. There was no evidence for pulmonary embolism. She was intubated for about 48 hours with steady improvement in her respiratory status following intubation. On October 21 she was successfully extubated. She required supplemental oxygen throughout the night while I the next morning she was weaned off of supplemental oxygen. Cultures have all remained negative and antibiotics were de-escalated down to just levofloxacin. She has remained stable without any fevers. Her left flank pain from the pyelonephritis has steadily improved. She has not required any supplemental oxygen in more than 24 hours. Strength is improving and she's been up and walking around. Appetite is improving. She has completed her steroid treatment. She is stable and safe for discharge at this time. She would benefit from additional antibiotic therapy to complete a total of 10 days of antibiotics. She'll be discharged to a inpatient treatment facility to complete her alcohol and methamphetamine treatment. She is medically stable and safe to be in this setting at this time. Also noted during the hospital stay was mild hypokalemia which spot well to supplementation. At the time of presentation her creatinine was 1.8 and has improved to 1.2. Acute kidney injury is likely secondary to sepsis which resolved fairly quickly after hospital admission. - Patient Instructions Diet: Regular Diet as Tolerated Activity: As Tolerated Showering/Bathing: May Shower Notify Provider of: Increased Pain, Nausea and/or Vomiting Other/Special Instructions: 1. You were in the hospital for management of left- sided pyelonephritis. We did not determine a cause of bacteria for the infection but this infection has been improving with antibiotic therapy. Your hospital stay was complicated by a progression of bilateral pneumonia that caused respiratory failure and necessitated mechanical ventilation. Your pneumonia and respiratory status have been improving rapidly. I do recommend additional antibiotic therapy with levofloxacin. You should take 750 mg every 48 hours. Your next dose will be due on at noon and your final dose will be on Monday at noon. You may return to activities as tolerated with no specific limitations. 2. Continue your usual home medications as previously prescribed. 3. I would recommend that you take a probiotic twice daily for 10 days to help reduce the antibiotic associated diarrhea. You may also choose to use either Welsh yogurt or Activia to help with restore the normal gut maggie as well. - Discharge Plan *PRESCRIPTION DRUG MONITORING PROGRAM REVIEWED*: Not Applicable *COPY OF PRESCRIPTION DRUG MONITORING REPORT IN PATIENT CARIE: Not Applicable Prescriptions/Med Rec: Acetaminophen [Tylenol] 325 mg PO Q4H PRN #200 tablet PRN Reason: Pain/Fever Albuterol/Ipratropium [Combivent Respimat] 4 gm IH DAILY #1 inhaler amLODIPine [Norvasc] 10 mg PO DAILY #60 tablet atorvaSTATin [Lipitor] 40 mg PO DAILY #60 tablet Carvedilol 6.25 mg PO DAILY #120 tablet Clopidogrel Bisulfate [Clopidogrel] 75 mg PO DAILY #60 tablet DULoxetine [Cymbalta] 60 mg PO DAILY #60 cap L. Acidophilus/Pectin, Dewey [Acidophilus Probiotic] 1 each PO BID #20 capsule Levofloxacin 750 mg PO Q48H #2 tablet Losartan [Cozaar] 50 mg PO DAILY #60 tablet Nicotine [Habitrol] 21 mg TRDERM DAILY #60 patch Home Medications: Home Meds Acetaminophen [Tylenol] 325 mg PO Q4H PRN #200 tablet 10/23/18 [Rx] Albuterol/Ipratropium [Combivent Respimat] 4 gm IH DAILY #1 inhaler 10/23/18 [Rx ] Carvedilol 6.25 mg PO DAILY #120 tablet 10/23/18 [Rx] Clopidogrel Bisulfate [Clopidogrel] 75 mg PO DAILY #60 tablet 10/23/18 [Rx] DULoxetine [Cymbalta] 60 mg PO DAILY #60 cap 10/23/18 [Rx] L. Acidophilus/Pectin, Dewey [Acidophilus Probiotic] 1 each PO BID #20 capsule 10/23/18 [Rx] Levofloxacin 750 mg PO Q48H #2 tablet 10/23/18 [Rx] Losartan [Cozaar] 50 mg PO DAILY #60 tablet 10/23/18 [Rx] Nicotine [Habitrol] 21 mg TRDERM DAILY #60 patch 10/23/18 [Rx] amLODIPine [Norvasc] 10 mg PO DAILY #60 tablet 10/23/18 [Rx] atorvaSTATin [Lipitor] 40 mg PO DAILY #60 tablet 10/23/18 [Rx] Oxygen Therapy Mode: Room Air Forms: ED Department Discharge Referrals: PCP,None [Primary Care Provider] - (f/u with your primary care as needed ) - Discharge Summary/Plan Comment DC Time >30 min.: Yes (50 - discharge to inpatient treatment) - Patient Data Vitals - Most Recent: Last Vital Signs Temp 35.3 C 10/23/18 07:44 Pulse 76 10/23/18 08:33 Resp 16 10/23/18 07:44 BP 151/67 H 10/23/18 08:33 Pulse Ox 95 10/23/18 07:44 Weight - Most Recent: 47.083 kg I&O - Last 24 hours: Intake & Output 10/22/18 10/23/18 10/23/18 22:59 06:59 14:59 Intake Total 400 Output Total 1 Balance 400 -1 MIGUEL Results - Last 24 hrs: Microbiology 10/17/18 22:30 Aerobic Blood Culture - Final Blood - Venous - Lab Draw NO GROWTH AFTER 5 DAYS Anaerobic Blood Culture - Final NO GROWTH AFTER 5 DAYS 10/17/18 22:25 Aerobic Blood Culture - Final Blood - Arm, Right NO GROWTH AFTER 5 DAYS Anaerobic Blood Culture - Final NO GROWTH AFTER 5 DAYS 10/19/18 18:30 Aerobic Blood Culture - Preliminary Blood - Arm, Right NO GROWTH AFTER 3 DAYS Anaerobic Blood Culture - Preliminary NO GROWTH AFTER 3 DAYS 10/19/18 18:30 Aerobic Blood Culture - Preliminary Blood - Arm, Right NO GROWTH AFTER 3 DAYS Anaerobic Blood Culture - Preliminary NO GROWTH AFTER 3 DAYS 10/19/18 18:09 Gram Stain - Final Trachea Respiratory Culture - Final NORMAL RESPIRATORY MAGGIE 2 DAYS Med Orders - Current: Current Medications Acetaminophen (Tylenol) 650 mg PO Q4H PRN PRN Reason: Pain (Mild 1-3)/fever Last Admin: 10/19/18 08:43 Dose: 650 mg Albuterol (Proventil Neb Soln) 2.5 mg NEB Q4H PRN PRN Reason: Shortness Of Breath/wheezing Albuterol/Ipratropium (Duoneb 3.0-0.5 Mg/3 Ml) 3 ml NEB QIDRT [facility] Last Admin: 10/23/18 07:26 Dose: 3 ml Amlodipine Besylate (Norvasc) 10 mg PO DAILY [facility] Last Admin: 10/23/18 08:30 Dose: 10 mg Carvedilol (Coreg) 6.25 mg PO DAILY [facility] Last Admin: 10/23/18 08:33 Dose: 6.25 mg Docusate Sodium (Colace) 100 mg PO BID PRN PRN Reason: Constipation Duloxetine HCl (Cymbalta) 60 mg PO DAILY [facility] Last Admin: 10/23/18 08:33 Dose: 60 mg Enoxaparin Sodium (Lovenox) 40 mg SUBCUT BEDTIME [facility] Last Admin: 10/22/18 21:42 Dose: 40 mg Levofloxacin (Levaquin) 750 mg PO Q48H [facility] Lorazepam (Ativan) 1 mg IV Q4H PRN PRN Reason: Agitation Last Admin: 10/22/18 01:06 Dose: 1 mg Losartan Potassium (Cozaar) 50 mg PO DAILY [facility] Last Admin: 10/23/18 08:32 Dose: 50 mg Nicotine (Habitrol) 21 mg TRDERM DAILY [facility] Last Admin: 10/23/18 08:34 Dose: Not Given Ondansetron HCl (Zofran) 4 mg IV Q4H PRN PRN Reason: Nausea/Vomiting Oxycodone HCl (Oxycodone) 5 mg PO Q4H PRN PRN Reason: Pain (moderate 4-6) Last Admin: 10/22/18 09:40 Dose: 5 mg Prednisone (Prednisone) 40 mg PO WITHBREAKFAST [facility] Last Admin: 10/23/18 08:30 Dose: 40 mg Temazepam (Restoril) 15 mg PO BEDTIME PRN PRN Reason: Sleep Discontinued Medications Amlodipine Besylate (Norvasc) 10 mg PO DAILY [facility] Enoxaparin Sodium (Lovenox) 30 mg SUBCUT DAILY [facility] Enoxaparin Sodium (Lovenox) 30 mg SUBCUT ONETIME ONE Stop: 10/18/18 00:31 Last Admin: 10/18/18 00:36 Dose: 30 mg Enoxaparin Sodium (Lovenox) 30 mg SUBCUT Q24H YUNIOR Last Admin: 10/20/18 21:29 Dose: 30 mg Furosemide (Lasix) 40 mg IVPUSH ONETIME ONE Stop: 10/19/18 15:16 Last Admin: 10/19/18 15:15 Dose: 40 mg Furosemide (Lasix) 40 mg IVPUSH NOW ONE Stop: 10/20/18 13:46 Last Admin: 10/20/18 14:00 Dose: 40 mg Furosemide (Lasix) 20 mg IV ONETIME ONE Stop: 10/21/18 09:46 Last Admin: 10/21/18 10:58 Dose: 20 mg Ceftriaxone Sodium 2 gm/ (Sodium Chloride) 50 mls @ 100 mls/hr IV ONETIME ONE Stop: 10/17/18 22:44 Last Admin: 10/17/18 22:31 Dose: 100 mls/hr Sodium Chloride (Normal Saline) 1,000 mls @ 1,000 mls/hr IV ASDIRECTED YUNIOR Last Admin: 10/17/18 22:31 Dose: 1,000 mls/hr Ceftriaxone Sodium 1 gm/ (Sodium Chloride) 50 mls @ 100 mls/hr IV Q24H YUNIOR Last Admin: 10/18/18 20:35 Dose: 100 mls/hr Sodium Chloride (Normal Saline) 1,000 mls @ 125 mls/hr IV ASDIRECTED YUNIOR Last Admin: 10/18/18 08:28 Dose: 125 mls/hr Sodium Chloride (Normal Saline) 1,000 mls @ 50 mls/hr IV ASDIRECTED YUNIOR Last Admin: 10/20/18 05:51 Dose: 50 mls/hr Heparin Sodium (Porcine) 5,000 (units/ Sodium Chloride) 501 mls @ 5 mls/hr IV ASDIRECTED YUNIOR Last Admin: 10/19/18 16:44 Dose: 5 mls/hr Propofol (Diprivan 100 Ml) 100 mls @ 2.825 mls/hr IV TITRATE YUNIOR; Protocol Last Titration: 10/21/18 06:24 Dose: 60 mcg/kg/min, 16.95 mls/hr Piperacillin Sod/Tazobactam (Sod 3.375 gm/ Sodium Chloride) 50 mls @ 100 mls/ hr IV Q6H [facility] Last Admin: 10/20/18 01:57 Dose: 100 mls/hr Piperacillin/Tazobactam/ (Dextrose 3.375 gm/ Premix) 50 mls @ 100 mls/hr IV Q6H [facility] Last Admin: 10/22/18 08:40 Dose: 100 mls/hr Magnesium Sulfate 2 gm/ Premix 50 mls @ 25 mls/hr IV Q6H [facility] Stop: 10/20/18 22:59 Last Admin: 10/20/18 21:25 Dose: 25 mls/hr Sodium Chloride (Normal Saline) 80 mls @ 4 mls/sec IV ONETIME ONE Stop: 10/20/18 11:39 Last Admin: 10/20/18 12:15 Dose: 4 mls/sec Sodium Chloride (Normal Saline) 500 mls @ 0 mls/hr IV .BOLUS ONE Stop: 10/21/18 05:19 Last Admin: 10/21/18 05:30 Dose: 10 mls/hr Potassium Chloride 20 meq/Lidocaine HCl 2 ml/ Sodium Chloride 112 mls @ 56 mls/ hr IV Q2H [facility] Stop: 10/21/18 13:29 Last Admin: 10/21/18 11:43 Dose: 56 mls/hr Levofloxacin/Dextrose 750 mg/ (Premix) 150 mls @ 100 mls/hr IV Q48H [facility] Last Admin: 10/21/18 12:26 Dose: 100 mls/hr Iopamidol (Isovue-370 (76%)) 80 ml IV . DIRECTED [facility] Stop: 10/20/18 16:00 Last Admin: 10/20/18 12:15 Dose: 80 ml Methylprednisolone Sodium Succinate (Solu-Medrol) 125 mg IVPUSH ONETIME ONE Stop: 10/19/18 16:11 Last Admin: 10/19/18 16:39 Dose: 125 mg Methylprednisolone Sodium Succinate (Solu-Medrol) 40 mg IVPUSH Q6H [facility] Last Admin: 10/22/18 03:29 Dose: 40 mg Morphine Sulfate (Morphine) 2 mg IVPUSH Q2H PRN PRN Reason: Pain (severe 7-10) Nicotine (Habitrol) 21 mg TRDERM ONETIME ONE Stop: 10/18/18 00:31 Last Admin: 10/18/18 00:36 Dose: 21 mg Potassium Chloride (Klor-Con M20) 40 meq PO ONETIME ONE Stop: 10/18/18 09:01 Last Admin: 10/18/18 09:31 Dose: 40 meq Potassium Chloride (Klor-Con M20) 40 meq PO ONETIME ONE Stop: 10/21/18 13:01 Last Admin: 10/21/18 12:25 Dose: 40 meq Prednisone (Prednisone) 40 mg PO ONETIME ONE Stop: 10/22/18 10:01 Last Admin: 10/22/18 10:50 Dose: 40 mg Propofol (Diprivan 20 Ml) 200 mg IV ONETIME ONE Stop: 10/19/18 15:31 Last Admin: 10/19/18 15:30 Dose: 200 mg Propofol (Diprivan 20 Ml) 200 mg IV .STK-MED ONE Stop: 10/19/18 15:31 Sodium Chloride (Saline Flush) 10 ml FLUSH ONETIME ONE Stop: 10/20/18 11:39 Last Admin: 10/20/18 12:15 Dose: 10 ml - Exam Quality Assessment: Denies: Supplemental Oxygen General: Reports: Alert, Oriented, Cooperative, No Acute Distress Lungs: Reports: Clear to Auscultation, Normal Respiratory Effort Cardiovascular: Reports: Regular Rate, Regular Rhythm GI/Abdominal Exam: Soft, No Distention Extremities: No Pedal Edema Psy/Mental Status: Reports: Alert, Normal Affect
[2018-10-23] MEDS: Levofloxacin 250 MG Tab PO SCH ×2 (10:34→13:24)
[2018-10-23 22:07] LABS: HBSAG SCREEN Negative (Negative)
== END 2018-10-23 11:35 | DRG 853 ==
LOC: JP.ED 21:44 → JP.MS 23:27 → JP.ICU 10-19 15:36 → JP.MS 10-19 15:36 → JP.ICU 10-19 15:54 → JP.MS 10-22 14:50 → JP.ICU 10-22 14:50 → UNDODISIN 10-23 11:35
PROVIDERS: ADMIT Hospitalist; ATTEND Internal Medicine
PROC: 0BH17EZ Insertion of Endotracheal Airway into Trachea, Via Natural or Artificial Opening (ICD-10-PCS; principal; 2018-10-19)
PROC: 03HC3DZ Insertion of Intraluminal Device into Left Radial Artery, Percutaneous Approach (ICD-10-PCS; 2018-10-19)
PROC: 5A1935Z Respiratory Ventilation, Less than 24 Consecutive Hours (ICD-10-PCS; 2018-10-19)
DX: A41.9 Sepsis, unspecified organism (principal); J18.9 Pneumonia, unspecified organism; J96.01 Acute respiratory failure with hypoxia; N12 Tubulo-interstitial nephritis, not specified as acute or chronic; N30.00 Acute cystitis without hematuria; J44.0 Chronic obstructive pulmonary disease with (acute) lower respiratory infection; J44.1 Chronic obstructive pulmonary disease with (acute) exacerbation; F15.20 Other stimulant dependence, uncomplicated; N17.9 Acute kidney failure, unspecified; R65.20 Severe sepsis without septic shock; I10 Essential (primary) hypertension; F17.210 Nicotine dependence, cigarettes, uncomplicated; I25.10 Atherosclerotic heart disease of native coronary artery without angina pectoris; F10.20 Alcohol dependence, uncomplicated; R41.0 Disorientation, unspecified; R50.9 Fever, unspecified; E87.6 Hypokalemia; Z87.440 Personal history of urinary (tract) infections; E78.00 Pure hypercholesterolemia, unspecified; Z85.41 Personal history of malignant neoplasm of cervix uteri; Z92.3 Personal history of irradiation; Z85.51 Personal history of malignant neoplasm of bladder; Z85.53 Personal history of malignant neoplasm of renal pelvis; R32 Unspecified urinary incontinence; F41.9 Anxiety disorder, unspecified; I25.2 Old myocardial infarction; H54.7 Unspecified visual loss; Z87.01 Personal history of pneumonia (recurrent); Z95.5 Presence of coronary angioplasty implant and graft; Z88.2 Allergy status to sulfonamides; Z88.8 Allergy status to other drugs, medicaments and biological substances; Z90.710 Acquired absence of both cervix and uterus
CPT/HCPCS: 36415; 71045; 80053; 82140; 82150; 83605; 83690; 85025; 87040 ×2; 96365; 99284; J0696; J7030; J7050; 36600; 51702; 70450; 71275; 80048; 82803; 83735; 84484; 86140; 86803; 87070; 87205; 87340; 87449; 93005; 94002; 94003; 94640; 94762; 94799; 97110-GP; 97162-GP; 97530-GP; A9270-GY; J1644; J1650; J1940; J1956; J2001; J2060; J2543; J2704; J2920; J2930; J3475; J3480; J7040; J7620-GY; Q9967